=== PATIENT | male | born 1945 | race Caucasian/White ===

== ENCOUNTER → 2016-12-21 | Outpatient (REF) | payer MEDICARE, OTHER ==
[2016-12-21 12:29] LABS: ALBUMIN 4.1 GM/DL (3.2-5.2); ALBUMIN/GLOBULIN RATIO 1.32 (1.00-1.93); ALKALINE PHOSPHATASE 68 U/L (45-117); ALT/SGPT 36 U/L (12-78); ANION GAP 6 MEQ/L (8-16); AST/SGOT 20 U/L (15-37); BILIRUBIN,TOTAL 0.5 MG/DL (0.2-1.0); BLOOD UREA NITROGEN 15 MG/DL (7-18); CALCIUM LEVEL 8.9 MG/DL (8.8-10.2); CARBON DIOXIDE LEVEL 28 MEQ/L (21-32); CHLORIDE LEVEL 105 MEQ/L (98-107); CHOLESTEROL LEVEL 220 MG/DL (<200); GLOMERULAR FILTRATION RATE > 60.0 (>49); GLUCOSE, FASTING 98 MG/DL (80-110); POTASSIUM SERUM 4.8 MEQ/L (3.5-5.1); SODIUM LEVEL 139 MEQ/L (136-145); TOTAL PROTEIN 7.2 GM/DL (6.4-8.2); TRIGLYCERIDES LEVEL 161 MG/DL (<150)
== END ==
LOC: M SFHCPLAZ 09:13
PROVIDERS: ATTEND Physician Assistant
DX: E78.4 Other hyperlipidemia (principal)

== ENCOUNTER → 2016-12-28 | Outpatient (REF) | payer MEDICARE, OTHER ==
[2016-12-31 00:08] LABS: BABESIOSIS LEVEL IGG <1:10 (Neg:<1:10); BABESIOSIS LEVEL IGM <1:10 (Neg:<1:10); Lyme Disease IgG Ab 18 kDa Ban Present (.); Lyme Disease IgG Ab 23 kDa Ban Absent (.); Lyme Disease IgG Ab 28 kDa Ban Absent (.); Lyme Disease IgG Ab 30 kDa Ban Present (.); Lyme Disease IgG Ab 39 kDa Ban Present (.); Lyme Disease IgG Ab 41 kDa Ban Absent (.); Lyme Disease IgG Ab 45 kDa Ban Present (.); Lyme Disease IgG Ab 58 kDa Ban Absent (.); Lyme Disease IgG Ab 66 kDa Ban Present (.); Lyme Disease IgG Ab 93 kDa Ban Absent (.); Lyme Disease IgG West Blot Int Positive (.); Lyme Disease IgG/IgM Antibodie 1.22 ISR (0.00-0.90); Lyme Disease IgM Ab 23 kDa Ban Absent (.); Lyme Disease IgM Ab 39 kDa Ban Absent (.); Lyme Disease IgM Ab 41 kDa Ban Absent (.); Lyme Disease IgM Ab Quantitati <0.80 index (0.00-0.79); Lyme Disease IgM West Blot Int Negative (.)
== END ==
LOC: M SFHCPLAZ 08:54
PROVIDERS: ATTEND Physician Assistant
DX: A69.20 Lyme disease, unspecified (principal)
CPT/HCPCS: 85652; 86140; 86609; 86617; G0463

== ENCOUNTER → 2017-01-01 | Outpatient (REF) | payer MEDICARE, OTHER | LOC: M SFHCPLAZ 10:05 | PROVIDERS: ATTEND Physician Assistant | DX: A69.20 Lyme disease, unspecified (principal) ==

== ENCOUNTER 2017-04-13 12:13 | Outpatient (CLI) | payer MEDICARE, BC, OTHER ==
[~2017-04-13] VITALS: Ht 182.9 cm; Wt 120.2 kg
[~2017-04-13 12:13] MED LIST: ATOR1TAB21 PO; LISI40TAB PO
[2017-04-13] MEDS ORDERED: NS 1,000 ML IV ONE (12:30)
[2017-04-13] MEDS ORDERED: PROPOFOL 200 MG/20 ML VIAL As Ordered ONE ×2 (14:15→14:23)
--- NOTE | 2017-04-13 14:39 | ROOR ---
Patient Name: Aquilino Bess Procedure Date: 04/13/2017 2:05 PM Date of : 1945 Age: 71 Room: [facility] Gender: Male Note Status: Finalized Procedure: Total Colonoscopy to Cecum + Cold Snare Polypectomy Indications: Screening for colorectal malignant neoplasm Providers: Walt Parker MD Referring MD: KETURAH Harrington Requesting Provider: Medicines: Monitored Anesthesia Care Complications: No immediate complications. Procedure: Pre-Anesthesia Assessment: - The heart rate, respiratory rate, oxygen saturations, blood pressure, adequacy of pulmonary ventilation, and response to care were monitored throughout the procedure. The Colonoscope was introduced through the anus and advanced to the cecum, identified by appendiceal orifice and ileocecal valve. The colonoscopy was performed without difficulty. The patient tolerated the procedure well. The quality of the bowel preparation was excellent. Findings: The perianal and digital rectal examinations were normal. Non-bleeding internal hemorrhoids were found during retroflexion. The hemorrhoids were small and Grade I (internal hemorrhoids that do not prolapse). Multiple small and large-mouthed diverticula were found in the recto-sigmoid colon, sigmoid colon and descending colon. A small polyp was found in the ileocecal valve. The polyp was sessile. The polyp was removed with a cold snare. Resection and retrieval were complete. The exam was otherwise without abnormality on direct and retroflexion views. Impression: - Non-bleeding internal hemorrhoids. - Diverticulosis in the recto-sigmoid colon, in the sigmoid colon and in the descending colon. - One small polyp at the ileocecal valve, removed with a cold snare. Resected and retrieved. - The examination was otherwise normal on direct and retroflexion views. - The exam was otherwise normal to the cecum. Recommendation: - Patient has a contact number available for emergencies. The signs and symptoms of potential delayed complications were discussed with the patient. Return to normal activities tomorrow. Written discharge instructions were provided to the patient. - High fiber diet. - Discharge patient to home. - Continue present medications. - Await pathology results. - Telephone GI clinic for pathology results in 1 week. - Repeat colonoscopy in 5 years for surveillance based on pathology results. - Return to referring physician. - The findings and recommendations were discussed with the patient's family. Walt Parker MD Walt Parker MD 04/13/2017 2:39:27 PM This report has been signed electronically. Number of Addenda: 0 Note Initiated On: 04/13/2017 2:05 PM Estimated Blood Loss: Estimated blood loss: none.
[2017-04-13 15:04] VITALS: BP 152/80
== END 2017-04-13 15:15 | disposition home or self-care (01) ==
LOC: M OPP 12:13
PROVIDERS: ATTEND Internal Medicine Gastroenterology
DX: Z12.11 Encounter for screening for malignant neoplasm of colon (principal); D12.0 Benign neoplasm of cecum; K64.0 First degree hemorrhoids; K57.30 Diverticulosis of large intestine without perforation or abscess without bleeding; I10 Essential (primary) hypertension; E78.5 Hyperlipidemia, unspecified; Z86.19 Personal history of other infectious and parasitic diseases; G47.8 Other sleep disorders; G47.30 Sleep apnea, unspecified; R06.83 Snoring; Z88.0 Allergy status to penicillin; Z79.899 Other long term (current) drug therapy

== ENCOUNTER → 2017-12-10 | Outpatient (REF) | payer MEDICARE, OTHER ==
[2017-12-10 12:22] LABS: ALBUMIN 4.4 GM/DL (3.2-5.2); ALBUMIN/GLOBULIN RATIO 1.42 (1.00-1.93); ALKALINE PHOSPHATASE 83 U/L (45-117); ALT/SGPT 32 U/L (12-78); ANION GAP 7 MEQ/L (8-16); AST/SGOT 23 U/L (7-37); BILIRUBIN,TOTAL 0.5 MG/DL (0.2-1.0); BLOOD UREA NITROGEN 12 MG/DL (7-18); CARBON DIOXIDE LEVEL 28 MEQ/L (21-32); CHLORIDE LEVEL 106 MEQ/L (98-107); CREATININE FOR GFR 0.97 MG/DL (0.70-1.30); GLOMERULAR FILTRATION RATE > 60.0 (>42); GLUCOSE, FASTING 104 MG/DL (70-100); POTASSIUM SERUM 4.8 MEQ/L (3.5-5.1); SODIUM LEVEL 141 MEQ/L (136-145); TOTAL PROTEIN 7.5 GM/DL (6.4-8.2)
== END ==
LOC: M SFHCPLAZ 07:35
DX: I10 Essential (primary) hypertension (principal)
CPT/HCPCS: 80053

== ENCOUNTER → 2018-11-10 | Outpatient (CLI) | payer MEDICARE, BC, OTHER ==
[~2018-11-10] MED LIST changes: +LISI40TA PO; -LISI40TAB PO
[2018-11-10 09:18] LABS: BASO % 0.6 % (0.0-1.0); EOS # 0.1 10^3/uL (0.0-0.50); EOS % 2.8 % (0.0-3.0); HEMATOCRIT 44.9 % (42.0-52.0); HEMOGLOBIN 15.5 g/dl (13.5-17.5); LYMPH # 1.4 10^3/uL (1.5-4.5); LYMPH % 28.6 % (24.0-44.0); MEAN CORPUSCULAR HEMOGLOBIN 31.6 pg (27.0-33.0); MEAN CORPUSCULAR HGB CONC 34.5 g/dl (32.0-36.5); MEAN CORPUSCULAR VOLUME 91.4 fl (80.0-96.0); MONO # 0.6 10^3/uL (0.0-0.8); MONO % 11.6 % (0.0-5.0); NEUTROPHILS # 2.8 10^3/uL (1.8-7.7); NEUTROPHILS % 55.8 % (36.0-66.0); PLATELET COUNT, AUTOMATED 271 10^3/uL (150-450); RED BLOOD COUNT 4.91 10^6/uL (4.30-6.10)
[2018-11-10 09:48] LABS: ALBUMIN 4.5 GM/DL (3.2-5.2); ALT/SGPT 35 U/L (12-78); BILIRUBIN,TOTAL 0.6 MG/DL (0.2-1.0); BLOOD UREA NITROGEN 15 MG/DL (7-18); C REACTIVE PROTEIN QUANTITATIV 0.31 MG/DL (0.00-0.30); CALCIUM LEVEL 9.1 MG/DL (8.8-10.2); CARBON DIOXIDE LEVEL 27 MEQ/L (21-32); CHLORIDE LEVEL 102 MEQ/L (98-107); CHOLESTEROL LEVEL 291 MG/DL (<200); CHOLESTEROL RISK RATIO 5.017 (<5); CREATININE FOR GFR 1.03 MG/DL (0.70-1.30); FERRITIN 246 NG/ML (26-388); FREE T3 3.4 PG/ML (2.2-4.0); FREE T4 1.24 NG/DL (0.76-1.46); GLOMERULAR FILTRATION RATE > 60.0 (>42); GLUCOSE, FASTING 94 MG/DL (70-100); HDL CHOLESTEROL 58 MG/DL (>40); LDL CHOLESTEROL 195 MG/DL (<100); NON-HDL-C 233 MG/DL; POTASSIUM SERUM 4.3 MEQ/L (3.5-5.1); PROSTATIC SPECIFIC AG MONITOR 0.49 NG/ML (< 4.00); SODIUM LEVEL 136 MEQ/L (136-145); TOTAL PROTEIN 7.9 GM/DL (6.4-8.2); TRIGLYCERIDES LEVEL 190 MG/DL (<150)
[2018-11-10 09:55] LABS: ERYTHROCYTE SEDIMENTATION RATE 6 mm/hr (0-20)
[2018-11-10 09:58] LABS: HEMOGLOBIN A1c 5.6 %
[2018-11-10 11:51] LABS: CORTISOL AM 17.3 UG/DL (4.3-22.4); TOTAL 25(OH) VITAMIN D 46.8 NG/ML (30.0-100.0)
[2018-11-10 11:52] LABS: ESTRADIOL 32.2 PG/ML (<39.8); PROLACTIN 9.8 NG/ML (2.1-17.7); VITAMIN B12 LEVEL 396 PG/ML (247-911)
[2018-11-11 09:59] LABS: THYROID PEROXIDASE ANTIBODY < 28.0 U/ML (<60.0)
[2018-11-11 10:00] LABS: THYROGLOBULIN ANTIBODY < 15.0 U/ML (<60.0)
[2018-11-11 10:11] LABS: HEPATITIS B SURFACE ANTIGEN NEGATIVE (NEGATIVE)
[2018-11-11 10:37] LABS: HEPATITIS B CORE ANTIBODY IGM NEGATIVE (NEGATIVE)
[2018-11-11 10:38] LABS: HEPATITIS A ANTIBODY IGM NEGATIVE (NEGATIVE)
[2018-11-12 00:08] LABS: EBV AB TO NUCLEAR ANTIGEN <18.0 U/mL (0.0-17.9); EBV VIRAL CAPSID AG IgM <36.0 U/mL (0.0-35.9)
[2018-11-12 08:23] LABS: H PYLORI SERUM QUANT IgG ABY 6.57 (0.00-0.79); MYCOPLASMA PNEUMONIAE IgG 299 U/mL (0-99); MYCOPLASMA PNEUMONIAE IgM <770 U/mL (0-769); TISSUE TRANSGLUTAMINASE IgA <2 U/mL (0-3); ZINC PLASMA 88 ug/dL (56-134)
== END ==
LOC: M LAB 07:22
PROVIDERS: ATTEND Internal Medicine Gastroenterology
DX: R68.89 Other general symptoms and signs (principal); I10 Essential (primary) hypertension; E51.9 Thiamine deficiency, unspecified; E53.8 Deficiency of other specified B group vitamins; R79.89 Other specified abnormal findings of blood chemistry; E60 Dietary zinc deficiency; E11.9 Type 2 diabetes mellitus without complications; B96.81 Helicobacter pylori [H. pylori] as the cause of diseases classified elsewhere; Z11.59 Encounter for screening for other viral diseases; Z79.899 Other long term (current) drug therapy

== ENCOUNTER → 2019-01-12 | Outpatient (CLI) | payer MEDICARE, BC, OTHER ==
--- NOTE | 2019-01-12 10:51 | REP ---
SCREENING ABDOMINAL AORTA ULTRASOUND: The proximal aorta at the level of the diaphragm measures 2.3 cm in transverse by 2.5 cm in AP dimensions. The aorta measures 1.9 cm in transverse by 2.1 cm in AP dimensions at the level of the renal arteries. The mid abdominal aorta measures 2.2 cm in transverse by 2.4 cm in AP dimensions. The distal abdominal aorta measures 2.1 cm in transverse by 2.3 cm in AP dimensions. There is mild atherosclerotic plaque formation and ectasia in the mid aorta. IMPRESSION: Aorta ultrasound as described above. Electronically Signed by Guy Meyer MD 01/12/2019 11:10 A
== END ==
LOC: M RAD 08:32
PROVIDERS: ATTEND Family Medicine
DX: F17.211 Nicotine dependence, cigarettes, in remission (principal)

== ENCOUNTER → 2019-02-02 | Outpatient (CLI) | payer MEDICARE, BC, OTHER ==
[2019-02-02 08:18] LABS: BASO % 0.6 % (0.0-1.0); EOS # 0.2 10^3/uL (0.0-0.50); HEMATOCRIT 42.3 % (42.0-52.0); HEMOGLOBIN 14.3 g/dl (13.5-17.5); LYMPH # 1.5 10^3/uL (1.5-4.5); LYMPH % 29.5 % (24.0-44.0); MEAN CORPUSCULAR HEMOGLOBIN 31.4 pg (27.0-33.0); MEAN CORPUSCULAR HGB CONC 33.8 g/dl (32.0-36.5); MEAN CORPUSCULAR VOLUME 92.8 fl (80.0-96.0); MONO # 0.6 10^3/uL (0.0-0.8); MONO % 11.2 % (0.0-5.0); NEUTROPHILS # 2.7 10^3/uL (1.8-7.7); NEUTROPHILS % 54.3 % (36.0-66.0); PLATELET COUNT, AUTOMATED 269 10^3/uL (150-450); RED BLOOD COUNT 4.56 10^6/uL (4.30-6.10)
[2019-02-02 08:50] LABS: ALBUMIN 4.1 GM/DL (3.2-5.2); ALT/SGPT 25 U/L (12-78); BILIRUBIN,TOTAL 0.5 MG/DL (0.2-1.0); BLOOD UREA NITROGEN 16 MG/DL (7-18); CALCIUM LEVEL 9.1 MG/DL (8.8-10.2); CARBON DIOXIDE LEVEL 29 MEQ/L (21-32); CHLORIDE LEVEL 103 MEQ/L (98-107); CREATININE FOR GFR 1.11 MG/DL (0.70-1.30); GLOMERULAR FILTRATION RATE > 60.0 (>42); GLUCOSE, FASTING 95 MG/DL (70-100); POTASSIUM SERUM 4.6 MEQ/L (3.5-5.1); SODIUM LEVEL 137 MEQ/L (136-145); TOTAL PROTEIN 7.4 GM/DL (6.4-8.2)
== END ==
LOC: M LAB 07:24
PROVIDERS: ATTEND Internal Medicine Gastroenterology
DX: R68.89 Other general symptoms and signs (principal); I10 Essential (primary) hypertension

== ENCOUNTER → 2019-03-07 | Outpatient (CLI) | payer MEDICARE, BC, OTHER ==
[2019-03-07 11:35] LABS: BASO % 0.5 % (0.0-1.0); EOS # 0.1 10^3/uL (0.0-0.50); EOS % 1.3 % (0.0-3.0); HEMATOCRIT 41.7 % (42.0-52.0); HEMOGLOBIN 14.6 g/dl (13.5-17.5); LYMPH # 1.3 10^3/uL (1.5-4.5); LYMPH % 22.8 % (24.0-44.0); MEAN CORPUSCULAR HEMOGLOBIN 32.1 pg (27.0-33.0); MEAN CORPUSCULAR VOLUME 91.6 fl (80.0-96.0); MONO # 0.8 10^3/uL (0.0-0.8); MONO % 13.7 % (0.0-5.0); NEUTROPHILS # 3.4 10^3/uL (1.8-7.7); NEUTROPHILS % 61.5 % (36.0-66.0); PLATELET COUNT, AUTOMATED 260 10^3/uL (150-450); RED BLOOD COUNT 4.55 10^6/uL (4.30-6.10); WHITE BLOOD COUNT 5.5 10^3/uL (4.0-10.0)
[2019-03-07 12:21] LABS: ALBUMIN 4.5 GM/DL (3.2-5.2); ALT/SGPT 34 U/L (12-78); BILIRUBIN,TOTAL 0.6 MG/DL (0.2-1.0); BLOOD UREA NITROGEN 19 MG/DL (7-18); CALCIUM LEVEL 9.4 MG/DL (8.8-10.2); CARBON DIOXIDE LEVEL 28 MEQ/L (21-32); CHLORIDE LEVEL 103 MEQ/L (98-107); CREATININE FOR GFR 1.16 MG/DL (0.70-1.30); GLOMERULAR FILTRATION RATE > 60.0 (>42); GLUCOSE, FASTING 94 MG/DL (70-100); POTASSIUM SERUM 4.5 MEQ/L (3.5-5.1); SODIUM LEVEL 136 MEQ/L (136-145); TOTAL PROTEIN 7.7 GM/DL (6.4-8.2)
== END ==
LOC: M LAB 11:10
PROVIDERS: ATTEND Internal Medicine Gastroenterology
DX: I10 Essential (primary) hypertension (principal)

== ENCOUNTER → 2019-04-10 | Outpatient (CLI) | payer MEDICARE, BC, OTHER ==
[2019-04-10 11:13] LABS: BASO % 0.6 % (0.0-1.0); EOS # 0.1 10^3/uL (0.0-0.5); EOS % 2.8 % (0.0-3.0); HEMATOCRIT 40.8 % (42.0-52.0); HEMOGLOBIN 13.9 g/dl (13.5-17.5); LYMPH # 1.5 10^3/uL (1.5-5.0); LYMPH % 30.6 % (24.0-44.0); MEAN CORPUSCULAR HGB CONC 34.1 g/dl (32.0-36.5); MEAN CORPUSCULAR VOLUME 93.8 fl (80.0-96.0); MONO # 0.6 10^3/uL (0.0-0.8); NEUTROPHILS # 2.7 10^3/uL (1.5-8.5); NEUTROPHILS % 54.6 % (36.0-66.0); PLATELET COUNT, AUTOMATED 256 10^3/uL (150-450); RED BLOOD COUNT 4.35 10^6/uL (4.30-6.10)
[2019-04-10 11:34] LABS: ALBUMIN 3.9 GM/DL (3.2-5.2); ALT/SGPT 32 U/L (12-78); BILIRUBIN,TOTAL 0.5 MG/DL (0.2-1.0); BLOOD UREA NITROGEN 16 MG/DL (7-18); CALCIUM LEVEL 8.6 MG/DL (8.8-10.2); CARBON DIOXIDE LEVEL 30 MEQ/L (21-32); CHLORIDE LEVEL 105 MEQ/L (98-107); GLOMERULAR FILTRATION RATE > 60.0 (>42); GLUCOSE, FASTING 91 MG/DL (70-100); POTASSIUM SERUM 4.5 MEQ/L (3.5-5.1); SODIUM LEVEL 139 MEQ/L (136-145)
== END ==
LOC: M LAB 10:10
PROVIDERS: ATTEND Internal Medicine Gastroenterology
DX: Z79.899 Other long term (current) drug therapy (principal)

== ENCOUNTER → 2019-05-15 | Outpatient (CLI) | payer MEDICARE, BC, OTHER ==
[2019-05-15 09:34] LABS: BASO % 0.4 % (0.0-1.0); EOS # 0.1 10^3/uL (0.0-0.5); EOS % 2.7 % (0.0-3.0); HEMATOCRIT 40.9 % (42.0-52.0); HEMOGLOBIN 14.2 g/dl (13.5-17.5); LYMPH # 1.5 10^3/uL (1.5-5.0); LYMPH % 33.2 % (24.0-44.0); MEAN CORPUSCULAR HEMOGLOBIN 33.4 pg (27.0-33.0); MEAN CORPUSCULAR HGB CONC 34.7 g/dl (32.0-36.5); MEAN CORPUSCULAR VOLUME 96.2 fl (80.0-96.0); MONO # 0.5 10^3/uL (0.0-0.8); NEUTROPHILS # 2.3 10^3/uL (1.5-8.5); NEUTROPHILS % 51.3 % (36.0-66.0); PLATELET COUNT, AUTOMATED 214 10^3/uL (150-450); RED BLOOD COUNT 4.25 10^6/uL (4.30-6.10); WHITE BLOOD COUNT 4.5 10^3/uL (4.0-10.0)
[2019-05-15 10:12] LABS: ALBUMIN 3.9 GM/DL (3.2-5.2); ALT/SGPT 30 U/L (12-78); BILIRUBIN,TOTAL 0.5 MG/DL (0.2-1.0); BLOOD UREA NITROGEN 15 MG/DL (7-18); CARBON DIOXIDE LEVEL 29 MEQ/L (21-32); CHLORIDE LEVEL 104 MEQ/L (98-107); CREATININE FOR GFR 1.04 MG/DL (0.70-1.30); GLOMERULAR FILTRATION RATE > 60.0 (>42); GLUCOSE, FASTING 76 MG/DL (70-100); POTASSIUM SERUM 4.1 MEQ/L (3.5-5.1); SODIUM LEVEL 139 MEQ/L (136-145)
== END ==
LOC: M LAB 08:58
PROVIDERS: ATTEND Internal Medicine Gastroenterology
DX: I10 Essential (primary) hypertension (principal); R68.89 Other general symptoms and signs

== ENCOUNTER → 2019-06-10 | Outpatient (CLI) | payer MEDICARE, BC, OTHER ==
--- NOTE | 2019-06-12 09:23 | REP ---
MRI cervical spine: 06/10/2019. Indication: Cervical radiculopathy. Comparison: None. Technique: Multiplanar short and long TR sequences of the local spine were obtained without IV Gadolinium. Findings: Image quality is degraded by patient motion. Vertebral body alignment is within anatomical limits. Disc space narrowing and desiccation are present throughout. Endplate degenerative signal changes are noted most pronounced at C6/C7. No worrisome marrow signal is detected. There is no abnormal cord signal detected. C2/C3: There is no focal disc herniation or significant spinal canal / neural foraminal narrowing. C3/C4: Minimal disc bulge is present with bilateral facet arthropathy and no significant spinal canal or neural foraminal narrowing. C4/C5: There is an asymmetric disc osteophyte complex more apparent on the right with bilateral facet arthropathy. There is mild effacement of the ventral thecal sac. There is severe right and moderate left neural foraminal narrowing. C5/C6: Diffuse disc bulge and bilateral facet arthropathy are present with mild spinal canal and neural foraminal narrowing. C6/C7: Diffuse disc osteophyte complex is present more apparent on the left with mild spinal canal narrowing. There is moderate left neural foraminal narrowing. C7/C1: There is no focal disc herniation or significant spinal canal / neural foraminal narrowing. Impression: Multilevel degenerative sequelae as described without severe spinal canal narrowing/cord compression. Please correlate above with radicular level. Electronically Signed by Vu Reid DO 06/12/2019 09:15 A
== END ==
LOC: M RAD 09:58
PROVIDERS: ATTEND Family Medicine
DX: M50.30 Other cervical disc degeneration, unspecified cervical region (principal)

== ENCOUNTER → 2019-07-03 | Outpatient (CLI) | payer MEDICARE, BC, OTHER ==
[2019-07-03 08:51] LABS: BASO % 0.7 % (0.0-1.0); EOS # 0.2 10^3/uL (0.0-0.5); HEMOGLOBIN 14.7 g/dl (13.5-17.5); LYMPH # 1.3 10^3/uL (1.5-5.0); LYMPH % 30.2 % (24.0-44.0); MEAN CORPUSCULAR HEMOGLOBIN 31.9 pg (27.0-33.0); MEAN CORPUSCULAR HGB CONC 33.4 g/dl (32.0-36.5); MEAN CORPUSCULAR VOLUME 95.4 fl (80.0-96.0); MONO # 0.5 10^3/uL (0.0-0.8); MONO % 10.8 % (0.0-5.0); NEUTROPHILS # 2.3 10^3/uL (1.5-8.5); NEUTROPHILS % 53.8 % (36.0-66.0); PLATELET COUNT, AUTOMATED 246 10^3/uL (150-450); RED BLOOD COUNT 4.61 10^6/uL (4.30-6.10); WHITE BLOOD COUNT 4.3 10^3/uL (4.0-10.0)
[2019-07-03 09:07] LABS: ALBUMIN 3.9 GM/DL (3.2-5.2); ALT/SGPT 22 U/L (12-78); BILIRUBIN,TOTAL 0.5 MG/DL (0.2-1.0); BLOOD UREA NITROGEN 12 MG/DL (7-18); CALCIUM LEVEL 9.2 MG/DL (8.8-10.2); CARBON DIOXIDE LEVEL 29 MEQ/L (21-32); CHLORIDE LEVEL 106 MEQ/L (98-107); CHOLESTEROL LEVEL 255 MG/DL (<200); CHOLESTEROL RISK RATIO 4.322 (<5); CREATININE FOR GFR 0.97 MG/DL (0.70-1.30); FERRITIN 215 NG/ML (26-388); GLOMERULAR FILTRATION RATE > 60.0 (>42); GLUCOSE, FASTING 89 MG/DL (70-100); HDL CHOLESTEROL 59 MG/DL (>40); IRON (FE) 95 UG/DL (65-175); LDL CHOLESTEROL 170 MG/DL (<100); NON-HDL-C 196 MG/DL; PERCENT SATURATION 32.4 % (19.7-50.0); POTASSIUM SERUM 4.4 MEQ/L (3.5-5.1); SODIUM LEVEL 141 MEQ/L (136-145); TOTAL IRON BINDING CAPACITY 293 UG/DL (250-450); TOTAL PROTEIN 7.1 GM/DL (6.4-8.2); TRIGLYCERIDES LEVEL 129 MG/DL (<150)
[2019-07-03 11:26] LABS: ESTRADIOL 32.5 PG/ML (<39.8)
[2019-07-03 11:34] LABS: FOLATE 16.6 NG/ML (>5.4)
[2019-07-07 00:09] LABS: TESTOSTERONE DI-5-ALPHA LEVEL 36 ng/dL (.)
[2019-07-10 09:03] LABS: DEHYDROEPIANDROSTERONE SULFATE 89.5 ug/dL (30.9-295.6); HOMOCYST(E)INE SERUM 8.3 umol/L (0.0-15.0); Methylmalonic Acid 198 nmol/L (0-378); TESTOSTERONE FREE (DIRECT) 11.4 pg/mL (6.6-18.1)
== END ==
LOC: M LAB 07:59
PROVIDERS: ATTEND Internal Medicine Gastroenterology
DX: R68.89 Other general symptoms and signs (principal); I10 Essential (primary) hypertension; D50.8 Other iron deficiency anemias; Z13.0 Encounter for screening for diseases of the blood and blood-forming organs and certain disorders involving the immune mechanism; D63.0 Anemia in neoplastic disease; E29.1 Testicular hypofunction; Z13.220 Encounter for screening for lipoid disorders

== ENCOUNTER → 2020-10-24 | Outpatient (REF) | payer MEDICARE, OTHER ==
[~2020-10-24] MED LIST changes: -LISI40TA PO; +LISI40TA4 PO
[2020-10-24 12:46] LABS: HEMATOCRIT 45.5 % (42.0-52.0); HEMOGLOBIN 15.5 g/dl (13.5-17.5); MEAN CORPUSCULAR HEMOGLOBIN 30.6 pg (27.0-33.0); MEAN CORPUSCULAR HGB CONC 34.1 g/dl (32.0-36.5); MEAN CORPUSCULAR VOLUME 89.7 fl (80.0-96.0); PLATELET COUNT, AUTOMATED 263 10^3/uL (150-450); RED BLOOD COUNT 5.07 10^6/uL (4.30-6.10); WHITE BLOOD COUNT 6.4 10^3/uL (4.0-10.0)
[2020-10-24 13:27] LABS: ALBUMIN 4.4 GM/DL (3.2-5.2); ALT/SGPT 39 U/L (12-78); BILIRUBIN,TOTAL 0.4 MG/DL (0.2-1.0); BLOOD UREA NITROGEN 14 MG/DL (7-18); CALCIUM LEVEL 9.2 MG/DL (8.8-10.2); CARBON DIOXIDE LEVEL 29 MEQ/L (21-32); CHLORIDE LEVEL 106 MEQ/L (98-107); CHOLESTEROL LEVEL 253 MG/DL (<200); CREATININE FOR GFR 0.91 MG/DL (0.70-1.30); FREE T4 0.99 NG/DL (0.76-1.46); GLOMERULAR FILTRATION RATE > 60.0 (>42); GLUCOSE, FASTING 92 MG/DL (70-100); HDL CHOLESTEROL 50 MG/DL (>40); LDL CHOLESTEROL 159 MG/DL (<100); NON-HDL-C 203 MG/DL; POTASSIUM SERUM 4.4 MEQ/L (3.5-5.1); SODIUM LEVEL 140 MEQ/L (136-145); TOTAL PROTEIN 7.6 GM/DL (6.4-8.2); TRIGLYCERIDES LEVEL 218 MG/DL (<150)
== END ==
LOC: M SFHCADAM 09:22
PROVIDERS: ATTEND Family Medicine
DX: G47.33 Obstructive sleep apnea (adult) (pediatric) (principal); E78.5 Hyperlipidemia, unspecified; Z12.5 Encounter for screening for malignant neoplasm of prostate
CPT/HCPCS: 80053; 80061; 84439; 84443; 85027; G0103; G0463

== ENCOUNTER → 2021-02-03 | Outpatient (REF) | payer MEDICARE, OTHER ==
[2021-02-03 13:29] LABS: BASO % 0.5 % (0.0-1.0); EOS # 0.1 10^3/uL (0.0-0.5); EOS % 1.7 % (0.0-3.0); HEMATOCRIT 48.3 % (42.0-52.0); HEMOGLOBIN 15.9 g/dl (13.5-17.5); LYMPH # 1.8 10^3/uL (1.5-5.0); LYMPH % 29.1 % (24.0-44.0); MEAN CORPUSCULAR HEMOGLOBIN 30.8 pg (27.0-33.0); MEAN CORPUSCULAR HGB CONC 32.9 g/dl (32.0-36.5); MEAN CORPUSCULAR VOLUME 93.4 fl (80.0-96.0); MONO # 0.6 10^3/uL (0.0-0.8); MONO % 10.1 % (2.0-8.0); NEUTROPHILS # 3.7 10^3/uL (1.5-8.5); NEUTROPHILS % 58.1 % (36.0-66.0); PLATELET COUNT, AUTOMATED 285 10^3/uL (150-450); RED BLOOD COUNT 5.17 10^6/uL (4.30-6.10); WHITE BLOOD COUNT 6.3 10^3/uL (4.0-10.0)
[2021-02-03 15:26] LABS: CHOLESTEROL RISK RATIO 3.345 (<5)
[2021-02-04 19:07] LABS: TESTOSTERONE FREE (DIRECT) 9.7 pg/mL (6.6-18.1)
== END ==
LOC: M SFHCADAM 08:48
PROVIDERS: ATTEND Physician Assistant
DX: E78.5 Hyperlipidemia, unspecified (principal); Z86.19 Personal history of other infectious and parasitic diseases; E29.1 Testicular hypofunction

== ENCOUNTER → 2021-06-27 | Outpatient (CLI) | payer MEDICARE, BC, OTHER ==
[2021-06-27 10:55] LABS: BASO % 0.4 % (0.0-1.0); EOS # 0.2 10^3/uL (0.0-0.5); EOS % 2.4 % (0.0-3.0); HEMATOCRIT 46.7 % (42.0-52.0); HEMOGLOBIN 15.8 g/dl (13.5-17.5); LYMPH # 1.6 10^3/uL (1.5-5.0); LYMPH % 19.2 % (24.0-44.0); MEAN CORPUSCULAR HEMOGLOBIN 30.5 pg (27.0-33.0); MEAN CORPUSCULAR HGB CONC 33.8 g/dl (32.0-36.5); MEAN CORPUSCULAR VOLUME 90.2 fl (80.0-96.0); MONO # 0.8 10^3/uL (0.0-0.8); MONO % 9.5 % (2.0-8.0); NEUTROPHILS # 5.6 10^3/uL (1.5-8.5); PLATELET COUNT, AUTOMATED 292 10^3/uL (150-450); RED BLOOD COUNT 5.18 10^6/uL (4.30-6.10); WHITE BLOOD COUNT 8.2 10^3/uL (4.0-10.0)
[2021-06-27 11:15] LABS: ERYTHROCYTE SEDIMENTATION RATE 9 mm/hr (0-20)
[2021-06-27 11:30] LABS: ALBUMIN 4.2 GM/DL (3.2-5.2); ALT/SGPT 30 U/L (12-78); BILIRUBIN,TOTAL 0.6 MG/DL (0.2-1.0); BLOOD UREA NITROGEN 11 MG/DL (7-18); C REACTIVE PROTEIN QUANTITATIV 0.93 MG/DL (0.00-0.30); CALCIUM LEVEL 9.1 MG/DL (8.8-10.2); CARBON DIOXIDE LEVEL 26 MEQ/L (21-32); CHLORIDE LEVEL 104 MEQ/L (98-107); CORTISOL AM 21.3 UG/DL (4.3-22.4); FERRITIN 214 NG/ML (26-388); FREE T4 1.07 NG/DL (0.76-1.46); GLOMERULAR FILTRATION RATE > 60.0 (>42); GLUCOSE, FASTING 93 MG/DL (70-100); IRON (FE) 89 UG/DL (65-175); MAGNESIUM LEVEL 2.1 MG/DL (1.8-2.4); PERCENT SATURATION 26.5 % (19.7-50.0); PHOSPHORUS LEVEL 3.4 MG/DL (2.5-4.9); POTASSIUM SERUM 4.6 MEQ/L (3.5-5.1); RHEUMATOID FACTOR QUANT < 10.0 IU/ML (<15.0); SODIUM LEVEL 137 MEQ/L (136-145); THYROID PEROXIDASE ANTIBODY < 28.0 U/ML (<60.0); TOTAL 25(OH) VITAMIN D 58.2 NG/ML (30.0-100.0); TOTAL IRON BINDING CAPACITY 336 UG/DL (250-450); TOTAL PROTEIN 7.9 GM/DL (6.4-8.2)
[2021-06-27 11:31] LABS: VITAMIN B12 LEVEL 279 PG/ML (247-911)
[2021-06-27 16:01] LABS: HEMOGLOBIN A1c 5.5 %
[2021-06-28 17:11] LABS: MYCOPLASMA PNEUMONIAE IgG 321 U/mL (0-99); MYCOPLASMA PNEUMONIAE IgM <770 U/mL (0-769)
[2021-07-21 14:31] LABS: BARTONELLA DNA PCR SEE SEPARATE REPORT; COMPLEMENT C4A (FUTHAN) SEE SEPARATE REPORT
[2021-07-21 14:32] LABS: COX BURN IgG AB 1 See Separate Report TITER (<1:16); COX BURN IgG AB 2 See Separate Report TITER (<1:16); COX BURN IgM AB 2 See Separate Report TITER (<1:16); COX BURN IgM ABY 1 See Separate Report TITER (<1:16); EBV VIRAL CAPSID AG IgM SEE SEPARATE REPORT
[2021-07-21 14:33] LABS: ANTI DOUBLE STRAND-DNA AB See Separate Report; ANTI DS-DNA AB SEE SEPARATE REPORT; ANTINUCLEAR ANTIBODIES DIRECT See Separate Report; RNP ANTIBODIES See Separate Report; SJOGREN'S ANTI SS-A See Separate Report; SJOGREN'S ANTI SS-B See Separate Report; SMITH ANTIBODIES See Separate Report; VITAMIN B1 LEVEL WHOLE BLOOD See Separate Report
[2021-07-21 14:34] LABS: CHLAMYDIA PNEUMONIAE IgG SEE SEPARATE REPORT; CHLAMYDIA PNEUMONIAE IgM SEE SEPARATE REPORT; COPPER PLASMA SEE SEPARATE REPORT; E CHAFFEENSIS IgM TITER SEE SEPARATE REPORT; HUMAN GRANULCYTIC EHRLIC IgG SEE SEPARATE REPORT; HUMAN GRANULCYTIC EHRLIC IgM SEE SEPARATE REPORT; RMSFIGG1 SEE SEPARATE REPORT; ROCKY MTN SPOTTED FEVER IgM SEE SEPARATE REPORT; ZINC PLASMA See Separate Report
[2021-07-21 14:39] LABS: BABESIA MICROTI PCR SEE SEPARATE REPORT; DEHYDROEPIANDROSTERONE UNCONJ 150; E CHAFFEENSIS IgG TITER SEE SEPARATE REPORT
[2021-07-21 14:40] LABS: EBV AB TO NUCLEAR ANTIGEN SEE SEPARATE REPORT; EBV VIRAL CAPSID AG IgG SEE SEPARATE REPORT; SELENIUM LEVEL BLOOD SEE SEPARATE REPORT
[2021-07-21 14:43] LABS: ADRENOCORTICOTROPHIC HORMONE 20.1 pg/ml; VITAMIN B2 (RIBOFLAVIN) SEE SEPARATE REPORT
== END ==
LOC: M LAB 08:07
PROVIDERS: ATTEND General Practice
DX: E03.9 Hypothyroidism, unspecified (principal); E61.3 Manganese deficiency; E11.9 Type 2 diabetes mellitus without complications; R53.83 Other fatigue; I10 Essential (primary) hypertension; Z79.899 Other long term (current) drug therapy

== ENCOUNTER → 2021-11-19 | Outpatient (CLI) | payer MEDICARE, BC, OTHER ==
[2021-11-19 10:19] LABS: BASO % 0.5 % (0.0-1.0); EOS # 0.1 10^3/uL (0.0-0.5); EOS % 2.4 % (0.0-3.0); HEMOGLOBIN 13.9 g/dl (13.5-17.5); LYMPH # 0.8 10^3/uL (1.5-5.0); LYMPH % 19.4 % (24.0-44.0); MEAN CORPUSCULAR HEMOGLOBIN 31.3 pg (27.0-33.0); MEAN CORPUSCULAR HGB CONC 33.9 g/dl (32.0-36.5); MEAN CORPUSCULAR VOLUME 92.3 fl (80.0-96.0); MONO # 0.6 10^3/uL (0.0-0.8); NEUTROPHILS # 2.6 10^3/uL (1.5-8.5); PLATELET COUNT, AUTOMATED 238 10^3/uL (150-450); RED BLOOD COUNT 4.44 10^6/uL (4.30-6.10); WHITE BLOOD COUNT 4.1 10^3/uL (4.0-10.0)
[2021-11-19 11:03] LABS: HEMOGLOBIN A1c 5.4 %
[2021-11-19 11:16] LABS: ALT/SGPT 28 U/L (12-78); BILIRUBIN,TOTAL 0.7 MG/DL (0.2-1.0); BLOOD UREA NITROGEN 14 MG/DL (7-18); CALCIUM LEVEL 9.1 MG/DL (8.8-10.2); CARBON DIOXIDE LEVEL 31 MEQ/L (21-32); CHLORIDE LEVEL 106 MEQ/L (98-107); CHOLESTEROL LEVEL 147 MG/DL (<200); CREATININE FOR GFR 0.97 MG/DL (0.70-1.30); GLOMERULAR FILTRATION RATE > 60.0 (>42); GLUCOSE, FASTING 91 MG/DL (70-100); HDL CHOLESTEROL 49 MG/DL (>40); LDL CHOLESTEROL 75 MG/DL (<100); NON-HDL-C 98 MG/DL; POTASSIUM SERUM 4.5 MEQ/L (3.5-5.1); SODIUM LEVEL 140 MEQ/L (136-145); TOTAL 25(OH) VITAMIN D 36.2 NG/ML (30.0-100.0); TOTAL PROTEIN 6.8 GM/DL (6.4-8.2); TRIGLYCERIDES LEVEL 116 MG/DL (<150); VITAMIN B12 LEVEL 1301 PG/ML (247-911)
== END ==
LOC: M LAB 09:33
PROVIDERS: ATTEND General Practice
DX: I10 Essential (primary) hypertension (principal)

== ENCOUNTER → 2021-11-19 | Outpatient (CLI) | payer MEDICARE, BC, OTHER | LOC: CANPRECLI → M ADAMS 08:35 | PROVIDERS: ATTEND General Practice | DX: R53.83 Other fatigue (principal); E55.9 Vitamin D deficiency, unspecified; E53.8 Deficiency of other specified B group vitamins; E29.1 Testicular hypofunction; R68.89 Other general symptoms and signs; E11.9 Type 2 diabetes mellitus without complications; C80.1 Malignant (primary) neoplasm, unspecified; A78 Q fever; R79.82 Elevated C-reactive protein (CRP); Z13.220 Encounter for screening for lipoid disorders; E72.11 Homocystinuria ==

== ENCOUNTER → 2021-11-25 | Outpatient (CLI) | payer MEDICARE, BC, OTHER ==
[2021-11-25 08:56] LABS: BASO % 0.6 % (0.0-1.0); EOS # 0.2 10^3/uL (0.0-0.5); EOS % 3.1 % (0.0-3.0); HEMATOCRIT 41.2 % (42.0-52.0); LYMPH % 18.9 % (24.0-44.0); MEAN CORPUSCULAR HEMOGLOBIN 31.8 pg (27.0-33.0); MEAN CORPUSCULAR VOLUME 93.6 fl (80.0-96.0); MONO # 0.6 10^3/uL (0.0-0.8); MONO % 11.9 % (2.0-8.0); NEUTROPHILS # 3.3 10^3/uL (1.5-8.5); NEUTROPHILS % 64.9 % (36.0-66.0); PLATELET COUNT, AUTOMATED 248 10^3/uL (150-450); WHITE BLOOD COUNT 5.1 10^3/uL (4.0-10.0)
[2021-11-25 09:30] LABS: ALBUMIN 4.1 GM/DL (3.2-5.2); ALT/SGPT 31 U/L (12-78); BILIRUBIN,TOTAL 0.5 MG/DL (0.2-1.0); BLOOD UREA NITROGEN 10 MG/DL (7-18); CALCIUM LEVEL 8.9 MG/DL (8.8-10.2); CARBON DIOXIDE LEVEL 28 MEQ/L (21-32); CHLORIDE LEVEL 108 MEQ/L (98-107); CHOLESTEROL LEVEL 169 MG/DL (<200); CREATININE FOR GFR 0.91 MG/DL (0.70-1.30); GLOMERULAR FILTRATION RATE > 60.0 (>42); GLUCOSE, FASTING 91 MG/DL (70-100); HDL CHOLESTEROL 50 MG/DL (>40); LDL CHOLESTEROL 91 MG/DL (<100); NON-HDL-C 119 MG/DL; POTASSIUM SERUM 4.6 MEQ/L (3.5-5.1); SODIUM LEVEL 141 MEQ/L (136-145); TOTAL PROTEIN 7.2 GM/DL (6.4-8.2); TRIGLYCERIDES LEVEL 141 MG/DL (<150)
[2021-11-25 10:02] LABS: HEMOGLOBIN A1c 5.3 %
[2021-11-25 10:17] LABS: TOTAL 25(OH) VITAMIN D 38.3 NG/ML (30.0-100.0)
== END ==
LOC: M LAB 08:18
PROVIDERS: ATTEND General Practice
DX: R53.83 Other fatigue (principal); E55.9 Vitamin D deficiency, unspecified; E53.8 Deficiency of other specified B group vitamins; E11.9 Type 2 diabetes mellitus without complications; E29.1 Testicular hypofunction; R68.89 Other general symptoms and signs

== ENCOUNTER → 2021-12-08 | Outpatient (CLI) | payer MEDICARE, BC, OTHER ==
[2021-12-08 11:59] LABS: BASO % 0.7 % (0.0-1.0); EOS # 0.2 10^3/uL (0.0-0.5); EOS % 3.8 % (0.0-3.0); HEMATOCRIT 41.2 % (42.0-52.0); HEMOGLOBIN 13.8 g/dl (13.5-17.5); LYMPH # 1.3 10^3/uL (1.5-5.0); LYMPH % 24.2 % (24.0-44.0); MEAN CORPUSCULAR HEMOGLOBIN 30.8 pg (27.0-33.0); MEAN CORPUSCULAR HGB CONC 33.5 g/dl (32.0-36.5); MONO # 0.7 10^3/uL (0.0-0.8); MONO % 12.5 % (2.0-8.0); NEUTROPHILS # 3.2 10^3/uL (1.5-8.5); NEUTROPHILS % 58.3 % (36.0-66.0); PLATELET COUNT, AUTOMATED 285 10^3/uL (150-450); RED BLOOD COUNT 4.48 10^6/uL (4.30-6.10); WHITE BLOOD COUNT 5.5 10^3/uL (4.0-10.0)
[2021-12-08 12:07] LABS: ALBUMIN 4.2 GM/DL (3.2-5.2); ALT/SGPT 27 U/L (12-78); BILIRUBIN,TOTAL 0.5 MG/DL (0.2-1.0); BLOOD UREA NITROGEN 17 MG/DL (7-18); CALCIUM LEVEL 9.2 MG/DL (8.8-10.2); CARBON DIOXIDE LEVEL 31 MEQ/L (21-32); CHLORIDE LEVEL 106 MEQ/L (98-107); CREATININE FOR GFR 1.01 MG/DL (0.70-1.30); GLOMERULAR FILTRATION RATE > 60.0 (>42); GLUCOSE, FASTING 96 MG/DL (70-100); POTASSIUM SERUM 4.9 MEQ/L (3.5-5.1); SODIUM LEVEL 139 MEQ/L (136-145)
== END ==
LOC: M LAB 08:05
PROVIDERS: ATTEND General Practice
DX: E55.9 Vitamin D deficiency, unspecified (principal); R53.83 Other fatigue; E53.8 Deficiency of other specified B group vitamins; E29.1 Testicular hypofunction; R68.89 Other general symptoms and signs; E11.9 Type 2 diabetes mellitus without complications

== ENCOUNTER → 2021-12-12 | Outpatient (REF) | payer MEDICARE, BC, OTHER | LOC: M LAB REF 08:53 | PROVIDERS: ATTEND General Practice | DX: C80.1 Malignant (primary) neoplasm, unspecified (principal) ==

== ENCOUNTER → 2022-01-08 | Outpatient (CLI) | payer MEDICARE, BC, OTHER ==
[2022-01-08 08:00] LABS: BASO % 0.4 % (0.0-1.0); EOS # 0.3 10^3/uL (0.0-0.5); EOS % 5.3 % (0.0-3.0); HEMATOCRIT 43.9 % (42.0-52.0); HEMOGLOBIN 14.6 g/dl (13.5-17.5); LYMPH # 1.2 10^3/uL (1.5-5.0); LYMPH % 23.5 % (24.0-44.0); MEAN CORPUSCULAR HEMOGLOBIN 30.7 pg (27.0-33.0); MEAN CORPUSCULAR HGB CONC 33.3 g/dl (32.0-36.5); MEAN CORPUSCULAR VOLUME 92.4 fl (80.0-96.0); MONO # 0.7 10^3/uL (0.0-0.8); MONO % 12.3 % (2.0-8.0); NEUTROPHILS # 3.1 10^3/uL (1.5-8.5); NEUTROPHILS % 57.9 % (36.0-66.0); PLATELET COUNT, AUTOMATED 247 10^3/uL (150-450); RED BLOOD COUNT 4.75 10^6/uL (4.30-6.10); WHITE BLOOD COUNT 5.3 10^3/uL (4.0-10.0)
[2022-01-08 08:31] LABS: ALBUMIN 4.1 GM/DL (3.2-5.2); ALT/SGPT 24 U/L (12-78); BILIRUBIN,TOTAL 0.6 MG/DL (0.2-1.0); BLOOD UREA NITROGEN 14 MG/DL (7-18); CALCIUM LEVEL 9.5 MG/DL (8.8-10.2); CARBON DIOXIDE LEVEL 29 MEQ/L (21-32); CHLORIDE LEVEL 107 MEQ/L (98-107); CREATININE FOR GFR 0.96 MG/DL (0.70-1.30); GLOMERULAR FILTRATION RATE > 60.0 (>42); GLUCOSE, FASTING 96 MG/DL (70-100); POTASSIUM SERUM 4.4 MEQ/L (3.5-5.1); SODIUM LEVEL 142 MEQ/L (136-145); TOTAL PROTEIN 7.2 GM/DL (6.4-8.2)
== END ==
LOC: M LAB 06:55
PROVIDERS: ATTEND General Practice
DX: R53.83 Other fatigue (principal)

== ENCOUNTER → 2022-04-08 | Outpatient (CLI) | payer MEDICARE, BC, OTHER ==
[2022-04-08 08:35] LABS: BASO % 0.6 % (0.0-1.0); EOS # 0.2 10^3/uL (0.0-0.5); EOS % 4.1 % (0.0-3.0); LYMPH # 1.3 10^3/uL (1.5-5.0); LYMPH % 23.3 % (24.0-44.0); MEAN CORPUSCULAR HEMOGLOBIN 30.4 pg (27.0-33.0); MEAN CORPUSCULAR HGB CONC 33.3 g/dl (32.0-36.5); MEAN CORPUSCULAR VOLUME 91.3 fl (80.0-96.0); MONO # 0.6 10^3/uL (0.0-0.8); MONO % 11.8 % (2.0-8.0); NEUTROPHILS # 3.2 10^3/uL (1.5-8.5); NEUTROPHILS % 59.6 % (36.0-66.0); PLATELET COUNT, AUTOMATED 263 10^3/uL (150-450); RED BLOOD COUNT 4.93 10^6/uL (4.30-6.10); WHITE BLOOD COUNT 5.4 10^3/uL (4.0-10.0)
[2022-04-08 09:09] LABS: ALT/SGPT 24 U/L (12-78); BILIRUBIN,TOTAL 0.8 MG/DL (0.2-1.0); BLOOD UREA NITROGEN 15 MG/DL (7-18); CALCIUM LEVEL 9.1 MG/DL (8.8-10.2); CARBON DIOXIDE LEVEL 28 MEQ/L (21-32); CHLORIDE LEVEL 107 MEQ/L (98-107); GLOMERULAR FILTRATION RATE > 60.0 (>42); GLUCOSE, FASTING 96 MG/DL (70-100); POTASSIUM SERUM 4.6 MEQ/L (3.5-5.1); SODIUM LEVEL 139 MEQ/L (136-145); TOTAL PROTEIN 7.4 GM/DL (6.4-8.2)
[2022-04-08 09:40] LABS: VITAMIN B12 LEVEL > 2000 PG/ML (247-911)
[2022-04-08 10:40] LABS: ERYTHROCYTE SEDIMENTATION RATE 6 mm/hr (0-20)
== END ==
LOC: M LAB 07:13
PROVIDERS: ATTEND General Practice
DX: R53.83 Other fatigue (principal); E55.9 Vitamin D deficiency, unspecified; E53.8 Deficiency of other specified B group vitamins

== ENCOUNTER → 2022-05-04 | Outpatient (CLI) | payer MEDICARE, BC, OTHER | LOC: M LAB 07:54 | PROVIDERS: ATTEND General Practice | DX: E55.9 Vitamin D deficiency, unspecified (principal) ==

== ENCOUNTER → 2022-08-06 | Outpatient (CLI) | payer MEDICARE, BC, OTHER ==
[2022-08-06 09:22] LABS: BASO % 0.6 % (0.0-1.0); EOS # 0.2 10^3/uL (0.0-0.5); HEMATOCRIT 42.1 % (42.0-52.0); HEMOGLOBIN 14.2 g/dl (13.5-17.5); LYMPH # 1.2 10^3/uL (1.5-5.0); LYMPH % 24.7 % (24.0-44.0); MEAN CORPUSCULAR HEMOGLOBIN 30.6 pg (27.0-33.0); MEAN CORPUSCULAR HGB CONC 33.7 g/dl (32.0-36.5); MEAN CORPUSCULAR VOLUME 90.7 fl (80.0-96.0); MONO # 0.5 10^3/uL (0.0-0.8); MONO % 10.9 % (2.0-8.0); NEUTROPHILS % 60.4 % (36.0-66.0); PLATELET COUNT, AUTOMATED 265 10^3/uL (150-450); RED BLOOD COUNT 4.64 10^6/uL (4.30-6.10)
[2022-08-06 09:35] LABS: ALBUMIN 3.9 G/DL (3.2-5.2); ALKALINE PHOSPHATASE 73 U/L (46-116); ALT/SGPT 20 U/L (7.0-40); AST/SGOT 18 U/L (<34); BILIRUBIN,TOTAL 0.7 MG/DL (0.3-1.2); BLOOD UREA NITROGEN 14 MG/DL (9-23); CALCIUM LEVEL 9.1 MG/DL (8.3-10.6); CARBON DIOXIDE LEVEL 28 MMOL/L (20-31); CHLORIDE LEVEL 105 MMOL/L (98-107); CREATININE FOR GFR 0.86 MG/DL (0.70-1.30); GLOMERULAR FILTRATION RATE > 60.0 (>42); GLUCOSE, FASTING 94 MG/DL (74-106); POTASSIUM SERUM 4.6 MMOL/L (3.5-5.1); SODIUM LEVEL 140 MMOL/L (136-145); TOTAL PROTEIN 6.6 G/DL (5.7-8.2)
[2022-08-06 09:37] LABS: VITAMIN B12 LEVEL 1665 PG/ML (211-911)
== END ==
LOC: M LAB 08:17
PROVIDERS: ATTEND General Practice
DX: R53.83 Other fatigue (principal); E29.1 Testicular hypofunction; R68.89 Other general symptoms and signs; E53.8 Deficiency of other specified B group vitamins

== ENCOUNTER → 2022-09-21 | Outpatient (CLI) | payer MEDICARE, BC, OTHER ==
[~2022-09-21] MED LIST changes: +LISI10TA22 PO
== END ==
LOC: M LABSMTC 09:57
PROVIDERS: ATTEND Anesthesiology
DX: Z01.812 Encounter for preprocedural laboratory examination (principal); Z11.52 Encounter for screening for COVID-19

== ENCOUNTER 2022-09-23 08:27 | Day surgery (SDC) | payer MEDICARE, BC, OTHER ==
[~2022-09-23] VITALS: Ht 182.9 cm; Wt 116.1 kg
[~2022-09-23 08:27] MED LIST changes: +NS 1,000 ML IV ONE
[2022-09-23] MEDS ORDERED: propofoL 200 MG/20 ML VIAL As Ordered ONE ×2 (10:28→10:51)
[2022-09-23] MEDS ORDERED: LIDOCAINE 2% 100MG/5ML SDV (FOR ANES.) As Ordered ONE (10:28)
[2022-09-23 11:12] VITALS: BP 145/81
== END 2022-09-23 11:27 | disposition home or self-care (01) ==
LOC: M OPP 08:27
PROVIDERS: ATTEND Internal Medicine Gastroenterology
DX: Z12.11 Encounter for screening for malignant neoplasm of colon (principal); Z86.010 Personal history of colon polyps; K63.5 Polyp of colon; K64.0 First degree hemorrhoids; K57.30 Diverticulosis of large intestine without perforation or abscess without bleeding; K63.89 Other specified diseases of intestine; I10 Essential (primary) hypertension; E78.00 Pure hypercholesterolemia, unspecified; Z79.02 Long term (current) use of antithrombotics/antiplatelets; Z79.2 Long term (current) use of antibiotics; Z79.890 Hormone replacement therapy; Z79.899 Other long term (current) drug therapy; Z88.0 Allergy status to penicillin

== ENCOUNTER → 2022-11-03 | Outpatient (CLI) | payer MEDICARE, BC, OTHER ==
[~2022-11-03] MED LIST changes: -NS 1,000 ML IV ONE
[2022-11-03 08:47] LABS: BASO % 0.7 % (0.0-1.0); EOS # 0.2 10^3/uL (0.0-0.5); EOS % 2.9 % (0.0-3.0); HEMATOCRIT 44.5 % (42.0-52.0); HEMOGLOBIN 14.9 g/dl (13.5-17.5); LYMPH # 1.3 10^3/uL (1.5-5.0); MEAN CORPUSCULAR HEMOGLOBIN 30.7 pg (27.0-33.0); MEAN CORPUSCULAR HGB CONC 33.5 g/dl (32.0-36.5); MEAN CORPUSCULAR VOLUME 91.8 fl (80.0-96.0); MONO # 0.6 10^3/uL (0.0-0.8); MONO % 10.3 % (2.0-8.0); NEUTROPHILS # 3.7 10^3/uL (1.5-8.5); NEUTROPHILS % 63.6 % (36.0-66.0); PLATELET COUNT, AUTOMATED 277 10^3/uL (150-450); RED BLOOD COUNT 4.85 10^6/uL (4.30-6.10); WHITE BLOOD COUNT 5.8 10^3/uL (4.0-10.0)
== END ==
LOC: M LAB 07:43
PROVIDERS: ATTEND General Practice
DX: R53.83 Other fatigue (principal)

== ENCOUNTER → 2022-11-03 | Outpatient (CLI) | payer MEDICARE, BC, OTHER ==
[2022-11-03 08:48] LABS: BASO % 0.4 % (0.0-1.0); EOS # 0.2 10^3/uL (0.0-0.5); EOS % 2.7 % (0.0-3.0); HEMATOCRIT 44.7 % (42.0-52.0); HEMOGLOBIN 14.8 g/dl (13.5-17.5); LYMPH # 1.4 10^3/uL (1.5-5.0); LYMPH % 23.9 % (24.0-44.0); MEAN CORPUSCULAR HEMOGLOBIN 30.5 pg (27.0-33.0); MEAN CORPUSCULAR HGB CONC 33.1 g/dl (32.0-36.5); MEAN CORPUSCULAR VOLUME 92.2 fl (80.0-96.0); MONO # 0.6 10^3/uL (0.0-0.8); MONO % 10.8 % (2.0-8.0); NEUTROPHILS # 3.5 10^3/uL (1.5-8.5); NEUTROPHILS % 61.7 % (36.0-66.0); PLATELET COUNT, AUTOMATED 276 10^3/uL (150-450); RED BLOOD COUNT 4.85 10^6/uL (4.30-6.10); WHITE BLOOD COUNT 5.6 10^3/uL (4.0-10.0)
[2022-11-03 09:17] LABS: BLOOD UREA NITROGEN 14 MG/DL (9-23); CARBON DIOXIDE LEVEL 30 MMOL/L (20-31); CHLORIDE LEVEL 106 MMOL/L (98-107); CREATININE FOR GFR 0.97 MG/DL (0.70-1.30); GLOMERULAR FILTRATION RATE > 60.0 (>42); GLUCOSE, FASTING 88 MG/DL (74-106); POTASSIUM SERUM 4.4 MMOL/L (3.5-5.1); SODIUM LEVEL 140 MMOL/L (136-145)
== END ==
LOC: M LAB 07:47
PROVIDERS: ATTEND Nurse Practitioner Family
DX: C03.9 Malignant neoplasm of gum, unspecified (principal)

== ENCOUNTER → 2023-02-02 | Outpatient (REF) | payer MEDICARE, OTHER ==
[2023-02-02 13:11] LABS: BASO % 0.5 % (0.0-1.0); EOS # 0.1 10^3/uL (0.0-0.5); EOS % 1.8 % (0.0-3.0); HEMATOCRIT 43.1 % (42.0-52.0); HEMOGLOBIN 14.7 g/dl (13.5-17.5); LYMPH # 1.6 10^3/uL (1.5-5.0); LYMPH % 26.5 % (24.0-44.0); MEAN CORPUSCULAR HEMOGLOBIN 30.7 pg (27.0-33.0); MEAN CORPUSCULAR HGB CONC 34.1 g/dl (32.0-36.5); MONO # 0.6 10^3/uL (0.0-0.8); MONO % 10.4 % (2.0-8.0); NEUTROPHILS # 3.6 10^3/uL (1.5-8.5); NEUTROPHILS % 60.5 % (36.0-66.0); PLATELET COUNT, AUTOMATED 295 10^3/uL (150-450); RED BLOOD COUNT 4.79 10^6/uL (4.30-6.10)
[2023-02-02 13:38] LABS: ALBUMIN 4.5 G/DL (3.2-5.2); ALKALINE PHOSPHATASE 89 U/L (46-116); ALT/SGPT 20 U/L (7.0-40); AST/SGOT 12 U/L (<34); BILIRUBIN,TOTAL 0.8 MG/DL (0.3-1.2); BLOOD UREA NITROGEN 18 MG/DL (9-23); CALCIUM LEVEL 10.2 MG/DL (8.3-10.6); CARBON DIOXIDE LEVEL 28 MMOL/L (20-31); CHLORIDE LEVEL 105 MMOL/L (98-107); CREATININE FOR GFR 0.99 MG/DL (0.70-1.30); GLOMERULAR FILTRATION RATE > 60.0 (>42); GLUCOSE, FASTING 87 MG/DL (74-106); POTASSIUM SERUM 4.6 MMOL/L (3.5-5.1); SODIUM LEVEL 139 MMOL/L (136-145); TOTAL PROTEIN 7.2 G/DL (5.7-8.2)
== END ==
LOC: M LABDRWAD 12:22
PROVIDERS: ATTEND General Practice
DX: E55.9 Vitamin D deficiency, unspecified (principal); R53.83 Other fatigue; Z79.899 Other long term (current) drug therapy

== ENCOUNTER → 2023-02-16 | Outpatient (REF) | payer MEDICARE, OTHER ==
[2023-02-16 13:45] LABS: BASO % 0.5 % (0.0-1.0); EOS # 0.1 10^3/uL (0.0-0.5); EOS % 1.8 % (0.0-3.0); HEMATOCRIT 43.9 % (42.0-52.0); HEMOGLOBIN 14.6 g/dl (13.5-17.5); LYMPH # 1.4 10^3/uL (1.5-5.0); LYMPH % 25.2 % (24.0-44.0); MEAN CORPUSCULAR HEMOGLOBIN 30.8 pg (27.0-33.0); MEAN CORPUSCULAR HGB CONC 33.3 g/dl (32.0-36.5); MEAN CORPUSCULAR VOLUME 92.6 fl (80.0-96.0); MONO # 0.7 10^3/uL (0.0-0.8); MONO % 12.2 % (2.0-8.0); NEUTROPHILS # 3.3 10^3/uL (1.5-8.5); NEUTROPHILS % 60.1 % (36.0-66.0); PLATELET COUNT, AUTOMATED 254 10^3/uL (150-450); RED BLOOD COUNT 4.74 10^6/uL (4.30-6.10); WHITE BLOOD COUNT 5.5 10^3/uL (4.0-10.0)
[2023-02-16 14:19] LABS: ALBUMIN 4.3 G/DL (3.2-5.2); ALKALINE PHOSPHATASE 82 U/L (46-116); ALT/SGPT 20 U/L (7.0-40); AST/SGOT 11 U/L (<34); BILIRUBIN,TOTAL 0.6 MG/DL (0.3-1.2); BLOOD UREA NITROGEN 12 MG/DL (9-23); CALCIUM LEVEL 10.2 MG/DL (8.3-10.6); CARBON DIOXIDE LEVEL 29 MMOL/L (20-31); CHLORIDE LEVEL 106 MMOL/L (98-107); CREATININE FOR GFR 0.87 MG/DL (0.70-1.30); GLOMERULAR FILTRATION RATE > 60.0 (>42); GLUCOSE, FASTING 70 MG/DL (74-106); POTASSIUM SERUM 4.7 MMOL/L (3.5-5.1); SODIUM LEVEL 138 MMOL/L (136-145); TOTAL PROTEIN 6.9 G/DL (5.7-8.2)
[2023-02-16 14:20] LABS: THYROID STIMULATING HORMONE 1.247 uIU/ML (0.55-4.78)
== END ==
LOC: M SFHCADAM 09:20
PROVIDERS: ATTEND Family Medicine
DX: R42 Dizziness and giddiness (principal); Z79.899 Other long term (current) drug therapy

== ENCOUNTER → 2023-02-22 | Outpatient (CLI) | payer MEDICARE, BC, OTHER ==
[2023-02-22 09:53] LABS: BASO % 0.6 % (0.0-1.0); EOS # 0.1 10^3/uL (0.0-0.5); EOS % 2.6 % (0.0-3.0); HEMATOCRIT 42.7 % (42.0-52.0); HEMOGLOBIN 14.3 g/dl (13.5-17.5); LYMPH # 1.2 10^3/uL (1.5-5.0); LYMPH % 24.4 % (24.0-44.0); MEAN CORPUSCULAR HEMOGLOBIN 30.5 pg (27.0-33.0); MEAN CORPUSCULAR HGB CONC 33.5 g/dl (32.0-36.5); MONO # 0.5 10^3/uL (0.0-0.8); MONO % 10.1 % (2.0-8.0); NEUTROPHILS # 3.1 10^3/uL (1.5-8.5); NEUTROPHILS % 61.9 % (36.0-66.0); PLATELET COUNT, AUTOMATED 283 10^3/uL (150-450); RED BLOOD COUNT 4.69 10^6/uL (4.30-6.10); WHITE BLOOD COUNT 5.1 10^3/uL (4.0-10.0)
[2023-02-22 10:13] LABS: ALBUMIN 4.2 G/DL (3.2-5.2); ALKALINE PHOSPHATASE 75 U/L (46-116); ALT/SGPT 20 U/L (7.0-40); AST/SGOT 12 U/L (<34); BILIRUBIN,TOTAL 0.8 MG/DL (0.3-1.2); BLOOD UREA NITROGEN 13 MG/DL (9-23); CALCIUM LEVEL 8.9 MG/DL (8.3-10.6); CARBON DIOXIDE LEVEL 28 MMOL/L (20-31); CHLORIDE LEVEL 108 MMOL/L (98-107); GLOMERULAR FILTRATION RATE > 60.0 (>42); GLUCOSE, FASTING 97 MG/DL (74-106); POTASSIUM SERUM 4.3 MMOL/L (3.5-5.1); SODIUM LEVEL 143 MMOL/L (136-145); TOTAL PROTEIN 6.8 G/DL (5.7-8.2)
[2023-02-22 10:18] LABS: TOTAL 25(OH) VITAMIN D 43.6 NG/ML (20.0-100.0); VITAMIN B12 LEVEL 720 PG/ML (211-911)
== END ==
LOC: M LAB 09:07
PROVIDERS: ATTEND General Practice
DX: A78 Q fever (principal); R53.83 Other fatigue; E55.9 Vitamin D deficiency, unspecified; E53.8 Deficiency of other specified B group vitamins; R42 Dizziness and giddiness; E78.5 Hyperlipidemia, unspecified; K21.9 Gastro-esophageal reflux disease without esophagitis; I10 Essential (primary) hypertension; R09.89 Other specified symptoms and signs involving the circulatory and respiratory systems; Z87.891 Personal history of nicotine dependence

== ENCOUNTER → 2023-02-22 | Outpatient (CLI) | payer MEDICARE, BC, OTHER | LOC: M RAD 12:28 | PROVIDERS: ATTEND Family Medicine | DX: R42 Dizziness and giddiness (principal); E78.5 Hyperlipidemia, unspecified; K21.9 Gastro-esophageal reflux disease without esophagitis; I10 Essential (primary) hypertension; Z87.891 Personal history of nicotine dependence ==

== ENCOUNTER → 2023-06-17 | Outpatient (REF) | payer MEDICARE, BC, OTHER ==
[2023-06-17 16:44] LABS: HEMATOCRIT 43.3 % (42.0-52.0); HEMOGLOBIN 14.7 g/dl (13.5-17.5); MEAN CORPUSCULAR HEMOGLOBIN 30.8 pg (27.0-33.0); MEAN CORPUSCULAR HGB CONC 33.9 g/dl (32.0-36.5); MEAN CORPUSCULAR VOLUME 90.6 fl (80.0-96.0); PLATELET COUNT, AUTOMATED 277 10^3/uL (150-450); RED BLOOD COUNT 4.78 10^6/uL (4.30-6.10); WHITE BLOOD COUNT 6.7 10^3/uL (4.0-10.0)
[2023-06-17 17:06] LABS: ALBUMIN 4.3 G/DL (3.2-5.2); ALKALINE PHOSPHATASE 76 U/L (46-116); ALT/SGPT 18 U/L (7.0-40); AST/SGOT 16 U/L (<34); BILIRUBIN,TOTAL 0.5 MG/DL (0.3-1.2); BLOOD UREA NITROGEN 13 MG/DL (9-23); CALCIUM LEVEL 9.4 MG/DL (8.3-10.6); CARBON DIOXIDE LEVEL 28 MMOL/L (20-31); CHLORIDE LEVEL 101 MMOL/L (98-107); CHOLESTEROL LEVEL 244 MG/DL (<200); CHOLESTEROL RISK RATIO 5.74 (<5); CREATININE FOR GFR 0.83 MG/DL (0.70-1.30); GLOMERULAR FILTRATION RATE > 60.0 (>42); GLUCOSE, FASTING 79 MG/DL (74-106); HDL CHOLESTEROL 42.5 MG/DL (>40); LDL CHOLESTEROL 175.3 MG/DL (<100); NON-HDL-C 201.5 MG/DL; POTASSIUM SERUM 4.3 MMOL/L (3.5-5.1); SODIUM LEVEL 139 MMOL/L (136-145); THYROID STIMULATING HORMONE 1.677 uIU/ML (0.55-4.78); TOTAL PROTEIN 7.1 G/DL (5.7-8.2); TRIGLYCERIDES LEVEL 131 MG/DL (<150)
== END ==
LOC: M SFHCADAM 13:44
PROVIDERS: ATTEND Family Medicine
DX: E78.5 Hyperlipidemia, unspecified (principal); G47.33 Obstructive sleep apnea (adult) (pediatric); G62.9 Polyneuropathy, unspecified; Z12.5 Encounter for screening for malignant neoplasm of prostate

== ENCOUNTER → 2023-11-22 | Outpatient (CLI) | payer MEDICARE, BC | LOC: M WHC 12:22 | PROVIDERS: ATTEND Family Medicine | DX: R59.1 Generalized enlarged lymph nodes (principal); Z85.828 Personal history of other malignant neoplasm of skin ==

== ENCOUNTER → 2023-11-25 | Outpatient (REF) | payer MEDICARE, BC ==
[2023-11-25 13:06] LABS: BLOOD UREA NITROGEN 16 MG/DL (9-23); CALCIUM LEVEL 9.6 MG/DL (8.3-10.6); CARBON DIOXIDE LEVEL 30 MMOL/L (20-31); CHLORIDE LEVEL 109 MMOL/L (98-107); CREATININE FOR GFR 0.89 MG/DL (0.70-1.30); GLOMERULAR FILTRATION RATE > 60.0 (>42); GLUCOSE, FASTING 75 MG/DL (74-106); POTASSIUM SERUM 4.5 MMOL/L (3.5-5.1); SODIUM LEVEL 140 MMOL/L (136-145)
[2023-11-25 13:22] LABS: BASO % 0.5 % (0.0-1.0); EOS # 0.1 10^3/uL (0.0-0.5); EOS % 1.1 % (0.0-3.0); HEMATOCRIT 46.1 % (42.0-52.0); HEMOGLOBIN 15.2 g/dl (13.5-17.5); LYMPH # 1.1 10^3/uL (1.5-5.0); LYMPH % 16.8 % (24.0-44.0); MEAN CORPUSCULAR HEMOGLOBIN 30.5 pg (27.0-33.0); MEAN CORPUSCULAR VOLUME 92.6 fl (80.0-96.0); MONO # 0.8 10^3/uL (0.0-0.8); NEUTROPHILS # 4.6 10^3/uL (1.5-8.5); PLATELET COUNT, AUTOMATED 306 10^3/uL (150-450); RED BLOOD COUNT 4.98 10^6/uL (4.30-6.10); WHITE BLOOD COUNT 6.7 10^3/uL (4.0-10.0)
== END ==
LOC: M SFHCADAM 09:15
PROVIDERS: ATTEND Family Medicine
DX: R59.0 Localized enlarged lymph nodes (principal); Z85.89 Personal history of malignant neoplasm of other organs and systems; C32.0 Malignant neoplasm of glottis

== ENCOUNTER → 2023-11-26 | Outpatient (CLI) | payer MEDICARE, BC ==
[~2023-11-26] MED LIST changes: +ISOVUE-370 76% 100ML VIAL As Ordered ONE
== END ==
LOC: M RAD 07:01
PROVIDERS: ATTEND Family Medicine
DX: R59.0 Localized enlarged lymph nodes (principal); C03.9 Malignant neoplasm of gum, unspecified; Z85.828 Personal history of other malignant neoplasm of skin
CPT/HCPCS: 70491; Q9967

== ENCOUNTER → 2023-12-23 | Outpatient (CLI) | payer MEDICARE, BC ==
[~2023-12-23] MED LIST changes: -ISOVUE-370 76% 100ML VIAL As Ordered ONE; +LIDOCAINE 1% MDV 20ML VIAL As Ordered ONE
[2023-12-23 10:24] VITALS: BP 124/82; TEMP 98.2; O2SAT 98
== END ==
LOC: M IRPRO 10:16
PROVIDERS: ATTEND Nurse Practitioner Family
DX: C03.9 Malignant neoplasm of gum, unspecified (principal)

== ENCOUNTER 2024-02-19 14:24 | Emergency (ER) | payer MEDICARE, BC ==
[~2024-02-19] VITALS: Ht 182.9 cm; Wt 111.2 kg
[~2024-02-19 14:24] MED LIST changes: -LIDOCAINE 1% MDV 20ML VIAL As Ordered ONE
[2024-02-19] MEDS ORDERED: ISOVUE-370 76% 100ML VIAL As Ordered ONE (15:57)
[2024-02-19 16:02] LABS: BASO % 0.2 % (0.0-1.0); EOS # 0.1 10^3/uL (0.0-0.5); EOS % 1.4 % (0.0-3.0); HEMATOCRIT 41.2 % (42.0-52.0); HEMOGLOBIN 14.2 g/dl (13.5-17.5); LYMPH # 1.5 10^3/uL (1.5-5.0); LYMPH % 18.5 % (24.0-44.0); MEAN CORPUSCULAR HEMOGLOBIN 31.3 pg (27.0-33.0); MEAN CORPUSCULAR HGB CONC 34.5 g/dl (32.0-36.5); MEAN CORPUSCULAR VOLUME 90.7 fl (80.0-96.0); MONO # 1.1 10^3/uL (0.0-0.8); MONO % 13.2 % (2.0-8.0); NEUTROPHILS # 5.3 10^3/uL (1.5-8.5); NEUTROPHILS % 66.3 % (36.0-66.0); PLATELET COUNT, AUTOMATED 333 10^3/uL (150-450); RED BLOOD COUNT 4.54 10^6/uL (4.30-6.10); WHITE BLOOD COUNT 8.1 10^3/uL (4.0-10.0)
[2024-02-19 16:32] LABS: BLOOD UREA NITROGEN 16 MG/DL (9-23); CALCIUM LEVEL 9.1 MG/DL (8.3-10.6); CARBON DIOXIDE LEVEL 26 MMOL/L (20-31); CHLORIDE LEVEL 106 MMOL/L (98-107); CREATININE FOR GFR 0.96 MG/DL (0.70-1.30); GLOMERULAR FILTRATION RATE > 60.0 (>42); GLUCOSE, FASTING 97 MG/DL (74-106); POTASSIUM SERUM 4.6 MMOL/L (3.5-5.1); SODIUM LEVEL 139 MMOL/L (136-145)
[2024-02-19] MEDS ORDERED: TRAM50TA2 PO (21:07)
[2024-02-19] MEDS ORDERED: CLIN150C17 PO (21:07)
[2024-02-19] MEDS: traMADol 50 MG TAB (HOME DOSE PACK) PO ONE (21:20)
[2024-02-19 21:21] VITALS: BP 131/72; TEMP 97.7; O2SAT 98
== END 2024-02-19 21:29 | disposition home or self-care (01) ==
LOC: M ED 14:24
DX: R22.0 Localized swelling, mass and lump, head (principal); I10 Essential (primary) hypertension; E78.5 Hyperlipidemia, unspecified; F10.10 Alcohol abuse, uncomplicated; Z87.891 Personal history of nicotine dependence; Z88.0 Allergy status to penicillin; Z79.899 Other long term (current) drug therapy
CPT/HCPCS: 36415; 70491; 80047; 80048; 85025; 87070; 87077; 87186; 87205; 99284; Q9967

== ENCOUNTER 2024-03-12 04:11 | Emergency (ER) | payer MEDICARE, BC ==
[~2024-03-12] VITALS: Ht 182.9 cm; Wt 113.6 kg
[~2024-03-12 04:11] MED LIST changes: +CLIN150C17 PO; +DOXY100C82 PO; +TRAM50TA2 PO
[2024-03-12 04:35] LABS: HEMATOCRIT 38.8 % (42.0-52.0); HEMOGLOBIN 13.4 g/dl (13.5-17.5); MEAN CORPUSCULAR HEMOGLOBIN 31.2 pg (27.0-33.0); MEAN CORPUSCULAR HGB CONC 34.5 g/dl (32.0-36.5); MEAN CORPUSCULAR VOLUME 90.2 fl (80.0-96.0); PLATELET COUNT, AUTOMATED 353 10^3/uL (150-450); WHITE BLOOD COUNT 12.8 10^3/uL (4.0-10.0)
[2024-03-12] MEDS: METOPROLOL 5 MG/5 ML VIAL IV SCH (04:37)
[2024-03-12 04:47] LABS: INR 1.18; PARTIAL THROMBOPLASTIN TIME 24.5 SECONDS (24.8-34.2); PROTHROMBIN TIME 14.6 SECONDS (12.5-14.5)
[2024-03-12 05:00] LABS: BLOOD UREA NITROGEN 14 MG/DL (9-23); CALCIUM LEVEL 9.9 MG/DL (8.3-10.6); CARBON DIOXIDE LEVEL 26 MMOL/L (20-31); CHLORIDE LEVEL 106 MMOL/L (98-107); CREATININE FOR GFR 0.84 MG/DL (0.70-1.30); GLOMERULAR FILTRATION RATE > 60.0 (>42); GLUCOSE, FASTING 126 MG/DL (74-106); POTASSIUM SERUM 4.3 MMOL/L (3.5-5.1); SODIUM LEVEL 138 MMOL/L (136-145)
[2024-03-12] MEDS: DIGOXIN INJ 0.5 MG/2 ML AMP IV STA (05:16)
[2024-03-12] MEDS: NS 500 ML IV ONE (05:17)
[2024-03-12] MEDS ORDERED: AMIODARONE 150MG/3ML VIAL IVP STA ×2 (06:52→07:05)
[2024-03-12] MEDS ORDERED: AMIODARONE HCL 150 MG in IV 1 EA IV ONE (07:15)
[2024-03-12] MEDS: AMIODARONE HCL 150 MG in IV 1 EA IV ONE ×3 (07:20→15:24)
[2024-03-12] MEDS ORDERED: ATOR1TAB19 PO (07:21)
[2024-03-12] MEDS ORDERED: GABA-1171 PO (07:21)
[2024-03-12] MEDS ORDERED: TRAM50TA2 PO (07:21)
[2024-03-12] MEDS ORDERED: HOME MED LIST COMPLETE! XX SCH (07:25)
[2024-03-12 09:32] LABS: HEMATOCRIT 36.1 % (42.0-52.0); HEMOGLOBIN 12.3 g/dl (13.5-17.5)
[2024-03-12 17:15] VITALS: BP 144/77
[2024-03-12] MEDS: METOPROLOL TART 50 MG TAB PO ONE (17:15)
[2024-03-12 23:45] VITALS: BP 142/78; TEMP 98
[2024-03-13 00:05] VITALS: O2SAT 96
[2024-03-13] MEDS: traMADol 50 MG TAB PO ONE (00:05)
== END 2024-03-13 00:12 | disposition short-term general hospital (02) ==
LOC: M ED 04:11 → EDBD 04:11 → M ED 03-13 00:12
DX: R22.1 Localized swelling, mass and lump, neck (principal); I48.91 Unspecified atrial fibrillation; I10 Essential (primary) hypertension; E78.5 Hyperlipidemia, unspecified; Z79.899 Other long term (current) drug therapy; Z88.0 Allergy status to penicillin
CPT/HCPCS: 80048; 83735; 85014; 85018; 85027; 85610; 85730; 93005; 93306; 96374; 96375; 96376; 99285; J0283; J1160

== ENCOUNTER → 2024-04-03 | Outpatient (CLI) | payer MEDICARE, BC ==
[~2024-04-03] MED LIST changes: +ATOR1TAB19 PO; +CIPR500S PO; +ELIQ5TAB PO; +GABA-1171 PO; +METO75TA PO
== END ==
LOC: M ONCR 13:02
PROVIDERS: ATTEND General Practice
DX: C03.1 Malignant neoplasm of lower gum (principal); Z87.891 Personal history of nicotine dependence; Z98.890 Other specified postprocedural states; Z88.0 Allergy status to penicillin; Z88.1 Allergy status to other antibiotic agents; Z79.01 Long term (current) use of anticoagulants; Z79.899 Other long term (current) drug therapy; Z80.8 Family history of malignant neoplasm of other organs or systems; Z80.0 Family history of malignant neoplasm of digestive organs; Z80.1 Family history of malignant neoplasm of trachea, bronchus and lung; Z93.6 Other artificial openings of urinary tract status

== ENCOUNTER → 2024-05-02 | Outpatient (CLI) | payer MEDICARE, BC ==
[~2024-05-02] VITALS: Ht 182.9 cm; Wt 106.8 kg
[~2024-05-02] MED LIST changes: +BACT400T PO; +BACTDSTA PO; +LIDO30CR18 TOP; +LIDOCAINE 1% MDV 20ML VIAL As Ordered ONE; +MIDAZOLAM INJ 2MG/2ML VIAL As Ordered ONE; +ONDA-84 PO; +PROC10TA5 PO; +VANCOMYCIN HCL 1,000 MG, VIAL MATE ADAPTER 1 EACH in NS 250 ML IV ONE; +fentaNYL 100 MCG/2 ML INJECTION As Ordered ONE
[2024-05-02 07:25] VITALS: TEMP 97.8
[2024-05-02] MEDS: NS 1,000 ML IV SCH (08:02)
[2024-05-02] MEDS: VANCOMYCIN HCL 750 MG, VIAL MATE ADAPTER 1 EACH in D5W 250 ML IV ONE ×2 (08:02)
[2024-05-02 10:15] VITALS: BP 112/62; O2SAT 97
== END ==
LOC: M IRPRO 06:53
PROVIDERS: ATTEND Specialist
DX: C76.0 Malignant neoplasm of head, face and neck (principal)
CPT/HCPCS: 36561; C1894; J1642; J2250; J3010; J3370

== ENCOUNTER → 2024-05-08 | Outpatient (RCR) | payer MEDICARE, BC ==
[~2024-05-08] MED LIST changes: -LIDOCAINE 1% MDV 20ML VIAL As Ordered ONE; -MIDAZOLAM INJ 2MG/2ML VIAL As Ordered ONE; -VANCOMYCIN HCL 1,000 MG, VIAL MATE ADAPTER 1 EACH in NS 250 ML IV ONE; -fentaNYL 100 MCG/2 ML INJECTION As Ordered ONE
== END ==
LOC: M ONCR 04-19 14:22
PROVIDERS: ATTEND General Practice
DX: Z51.0 Encounter for antineoplastic radiation therapy (principal); C03.1 Malignant neoplasm of lower gum

== ENCOUNTER → 2024-05-24 | Outpatient (CLI) | payer MEDICARE, BC ==
[~2024-05-24] MED LIST changes: +FURO20TA2 PO; +ISOVUE-370 76% 100ML VIAL As Ordered ONE
== END ==
LOC: M RAD 15:44
PROVIDERS: ATTEND General Practice
DX: C03.1 Malignant neoplasm of lower gum (principal); R91.1 Solitary pulmonary nodule; Z87.81 Personal history of (healed) traumatic fracture; N62 Hypertrophy of breast; K76.89 Other specified diseases of liver

== ENCOUNTER → 2024-06-08 | Outpatient (RCR) | payer MEDICARE, BC ==
[~2024-06-08] MED LIST changes: +FENT1DIS14 TOP; -ISOVUE-370 76% 100ML VIAL As Ordered ONE; +LIDO100S29 PO; +NYST-38 PO; +OXYC1SOL3 PEG; +TRIA1CR80 TOP
== END ==
LOC: M ONCR 05-09 13:38
PROVIDERS: ATTEND General Practice
DX: Z51.0 Encounter for antineoplastic radiation therapy (principal); C03.1 Malignant neoplasm of lower gum

== ENCOUNTER → 2024-06-12 | Outpatient (CLI) | payer MEDICARE, BC ==
[~2024-06-12] MED LIST changes: -FENT1DIS14 TOP
[2024-06-12 10:06] LABS: HEMATOCRIT 24.6 % (42.0-52.0); HEMOGLOBIN 8.2 g/dl (13.5-17.5); MEAN CORPUSCULAR HEMOGLOBIN 28.5 pg (27.0-33.0); MEAN CORPUSCULAR HGB CONC 33.3 g/dl (32.0-36.5); MEAN CORPUSCULAR VOLUME 85.4 fl (80.0-96.0); PLATELET COUNT, AUTOMATED 143 10^3/uL (150-450); RED BLOOD COUNT 2.88 10^6/uL (4.30-6.10)
[2024-06-12 10:30] LABS: ALBUMIN 3.3 G/DL (3.2-5.2); ALKALINE PHOSPHATASE 60 U/L (40-129); ALT/SGPT < 9 U/L (7.0-40); AST/SGOT < 8 U/L (<34); BILIRUBIN,TOTAL 0.4 MG/DL (0.3-1.2); BLOOD UREA NITROGEN 23 MG/DL (9-23); CARBON DIOXIDE LEVEL 26 MMOL/L (20-31); CHLORIDE LEVEL 100 MMOL/L (98-107); CREATININE FOR GFR 0.93 MG/DL (0.70-1.30); GLOMERULAR FILTRATION RATE > 60.0 (>42); GLUCOSE, FASTING 100 MG/DL (74-106); IRON (FE) 28 UG/DL (65-175); PERCENT SATURATION 10.6 % (19.7-50.0); POTASSIUM SERUM 5.3 MMOL/L (3.5-5.1); SODIUM LEVEL 135 MMOL/L (136-145); TOTAL IRON BINDING CAPACITY 265 UG/DL (250-425); TOTAL PROTEIN 6.4 G/DL (5.7-8.2)
[2024-06-12 10:32] LABS: FERRITIN 315.8 NG/ML (10.5-307.3); TOTAL 25(OH) VITAMIN D 44.5 NG/ML (20.0-100.0)
[2024-06-12 10:49] LABS: ANISOCYTOSIS 1+; LYMPHOCYTES 6 % (16-44); MONOCYTES 29 % (0-5); NEUTROPHILS 45 % (28-66)
[2024-06-12 10:50] LABS: HYPOCHROMASIA 1+
[2024-06-12 10:51] LABS: PLATELET ESTIMATE NORMAL (NORMAL)
== END ==
LOC: M LAB 09:07
PROVIDERS: ATTEND Nurse Practitioner Family
DX: E55.9 Vitamin D deficiency, unspecified (principal); Z85.818 Personal history of malignant neoplasm of other sites of lip, oral cavity, and pharynx; A77.0 Spotted fever due to Rickettsia rickettsii; R21 Rash and other nonspecific skin eruption; K21.9 Gastro-esophageal reflux disease without esophagitis; A69.20 Lyme disease, unspecified; G47.33 Obstructive sleep apnea (adult) (pediatric); D51.3 Other dietary vitamin B12 deficiency anemia; E53.9 Vitamin B deficiency, unspecified; I10 Essential (primary) hypertension; E78.2 Mixed hyperlipidemia; L21.8 Other seborrheic dermatitis

== ENCOUNTER 2024-06-28 14:40 | Emergency (ER) | payer MEDICARE, BC ==
[~2024-06-28] VITALS: Ht 182.9 cm; Wt 104.5 kg
[~2024-06-28 14:40] MED LIST changes: +FENT1DIS14 TOP; +NARC1SPR NARES
[2024-06-28] MEDS ORDERED: METO1TAB7 (15:12)
[2024-06-28 17:07] LABS: HEMATOCRIT 23.7 % (42.0-52.0); MEAN CORPUSCULAR HEMOGLOBIN 28.9 pg (27.0-33.0); MEAN CORPUSCULAR HGB CONC 33.8 g/dl (32.0-36.5); MEAN CORPUSCULAR VOLUME 85.6 fl (80.0-96.0); PLATELET COUNT, AUTOMATED 291 10^3/uL (150-450); RED BLOOD COUNT 2.77 10^6/uL (4.30-6.10); WHITE BLOOD COUNT 5.4 10^3/uL (4.0-10.0)
[2024-06-28] MEDS: OXYMETAZOLINE 0.05% NASAL SPRAY (AFRIN) ONE (17:27)
[2024-06-28 18:30] VITALS: BP 142/67; TEMP 99; O2SAT 98
[2024-06-29] MEDS ORDERED: IVER1TAB PO (11:53)
== END 2024-06-28 18:33 | disposition home or self-care (01) ==
LOC: EDBD 14:40 → M ED 14:40
DX: R04.0 Epistaxis (principal); C76.0 Malignant neoplasm of head, face and neck; C03.9 Malignant neoplasm of gum, unspecified; I10 Essential (primary) hypertension; E78.5 Hyperlipidemia, unspecified; Z92.3 Personal history of irradiation; Z79.01 Long term (current) use of anticoagulants; Z79.899 Other long term (current) drug therapy; Z88.0 Allergy status to penicillin

== ENCOUNTER 2024-06-30 08:34 | Outpatient (RCR) | payer MEDICARE, BC ==
[~2024-06-30 08:34] MED LIST changes: +IVER1TAB PO; +METO1TAB7
== END 2024-07-08 ==
LOC: M ONCR 08:34
PROVIDERS: ATTEND General Practice
DX: Z51.0 Encounter for antineoplastic radiation therapy (principal); C03.1 Malignant neoplasm of lower gum

== ENCOUNTER → 2024-07-11 | Outpatient (REF) | payer MEDICARE, OTHER | LOC: M SFHCWOUN 17:21 | PROVIDERS: ATTEND Surgery | DX: S11.90XA Unspecified open wound of unspecified part of neck, initial encounter (principal); L57.8 Other skin changes due to chronic exposure to nonionizing radiation; C44.42 Squamous cell carcinoma of skin of scalp and neck; X58.XXXA Exposure to other specified factors, initial encounter; Y92.9 Unspecified place or not applicable; Y93.9 Activity, unspecified; Y99.9 Unspecified external cause status ==

== ENCOUNTER → 2024-07-11 | Outpatient (CLI) | payer MEDICARE, BC | LOC: M ONCR 12:45 | PROVIDERS: ATTEND General Practice | DX: R21 Rash and other nonspecific skin eruption (principal); R22.0 Localized swelling, mass and lump, head; L59.8 Other specified disorders of the skin and subcutaneous tissue related to radiation; S11.90XA Unspecified open wound of unspecified part of neck, initial encounter; W88.8XXA Exposure to other ionizing radiation, initial encounter ==

== ENCOUNTER → 2024-07-19 | Outpatient (CLI) | payer MEDICARE, BC ==
[~2024-07-19] MED LIST changes: +HYDR-3363 PO; +ISOVUE-370 76% 100ML VIAL As Ordered ONE; +K2 P1TAB PO; +LIDVISCBTL PO; -METO1TAB7; +METO1TAB7 PO; +NACCAP PO; +OMEGCAP4 PO; +OXYC1SOL3 PO; +QUER500C PO; +[UNRECOGNIZED DRUG - CODE] PO
== END ==
LOC: M RAD 12:36
PROVIDERS: ATTEND General Practice
DX: C03.1 Malignant neoplasm of lower gum (principal); C78.01 Secondary malignant neoplasm of right lung; C78.02 Secondary malignant neoplasm of left lung; N28.1 Cyst of kidney, acquired; K76.89 Other specified diseases of liver; K57.30 Diverticulosis of large intestine without perforation or abscess without bleeding
CPT/HCPCS: 70491; 71260; 74177; Q9967

== ENCOUNTER → 2024-07-20 | Outpatient (CLI) | payer MEDICARE, BC ==
[~2024-07-20] MED LIST changes: -ISOVUE-370 76% 100ML VIAL As Ordered ONE
== END ==
LOC: M ONCR 11:45
PROVIDERS: ATTEND General Practice
DX: C78.01 Secondary malignant neoplasm of right lung (principal); C78.02 Secondary malignant neoplasm of left lung; C03.1 Malignant neoplasm of lower gum; Z71.2 Person consulting for explanation of examination or test findings

== ENCOUNTER → 2024-07-24 | Outpatient (CLI) | payer MEDICARE, BC ==
[2024-07-24 10:53] LABS: BASO % 0.3 % (0.0-1.0); EOS # 0.2 10^3/uL (0.0-0.5); EOS % 2.1 % (0.0-3.0); HEMATOCRIT 24.3 % (42.0-52.0); HEMOGLOBIN 7.9 g/dl (13.5-17.5); LYMPH # 0.4 10^3/uL (1.5-5.0); LYMPH % 5.2 % (24.0-44.0); MEAN CORPUSCULAR HEMOGLOBIN 29.6 pg (27.0-33.0); MEAN CORPUSCULAR HGB CONC 32.5 g/dl (32.0-36.5); MONO % 12.6 % (2.0-8.0); NEUTROPHILS % 79.1 % (36.0-66.0); PLATELET COUNT, AUTOMATED 254 10^3/uL (150-450); RED BLOOD COUNT 2.67 10^6/uL (4.30-6.10); WHITE BLOOD COUNT 7.6 10^3/uL (4.0-10.0)
[2024-07-24 11:23] LABS: ALBUMIN 3.3 G/DL (3.2-5.2); ALKALINE PHOSPHATASE 67 U/L (40-129); ALT/SGPT 14 U/L (7.0-40); AST/SGOT 12 U/L (<34); BILIRUBIN,TOTAL 0.4 MG/DL (0.3-1.2); BLOOD UREA NITROGEN 26 MG/DL (9-23); CALCIUM LEVEL 9.7 MG/DL (8.3-10.6); CARBON DIOXIDE LEVEL 27 MMOL/L (20-31); CHLORIDE LEVEL 103 MMOL/L (98-107); CREATININE FOR GFR 0.98 MG/DL (0.70-1.30); GLOMERULAR FILTRATION RATE > 60.0 (>42); GLUCOSE, FASTING 99 MG/DL (74-106); POTASSIUM SERUM 4.9 MMOL/L (3.5-5.1); SODIUM LEVEL 138 MMOL/L (136-145); TOTAL IRON BINDING CAPACITY 289 UG/DL (250-425)
[2024-07-24 11:24] LABS: IRON (FE) 19 UG/DL (65-175); PERCENT SATURATION 6.6 % (19.7-50.0)
[2024-07-24 11:31] LABS: FERRITIN 402.2 NG/ML (10.5-307.3)
[2024-07-24 11:32] LABS: TOTAL 25(OH) VITAMIN D 43.1 NG/ML (20.0-100.0)
== END ==
LOC: M LAB 10:19
PROVIDERS: ATTEND General Practice
DX: Z85.818 Personal history of malignant neoplasm of other sites of lip, oral cavity, and pharynx (principal); A69.20 Lyme disease, unspecified; E55.9 Vitamin D deficiency, unspecified; E53.9 Vitamin B deficiency, unspecified; A77.0 Spotted fever due to Rickettsia rickettsii; R21 Rash and other nonspecific skin eruption; L21.8 Other seborrheic dermatitis; D51.3 Other dietary vitamin B12 deficiency anemia; I10 Essential (primary) hypertension; E78.2 Mixed hyperlipidemia; G47.33 Obstructive sleep apnea (adult) (pediatric); K21.9 Gastro-esophageal reflux disease without esophagitis; D89.9 Disorder involving the immune mechanism, unspecified; E34.9 Endocrine disorder, unspecified

== ENCOUNTER → 2024-07-24 | Outpatient (REF) | payer MEDICARE, BC | LOC: M SFHCWOUN 13:48 | PROVIDERS: ATTEND Surgery | DX: S11.90XA Unspecified open wound of unspecified part of neck, initial encounter (principal); C44.42 Squamous cell carcinoma of skin of scalp and neck ==

== ENCOUNTER 2024-08-04 09:38 | Outpatient (RCR) | payer MEDICARE, BC ==
[2024-04-03 13:54] VITALS: BP 123/69; TEMP 96.4; O2SAT 97
[2024-04-03 14:20] LABS: BASO % 0.3 % (0.0-1.0); EOS # 0.1 10^3/uL (0.0-0.5); EOS % 0.6 % (0.0-3.0); HEMATOCRIT 31.1 % (42.0-52.0); HEMOGLOBIN 10.4 g/dl (13.5-17.5); LYMPH # 1.3 10^3/uL (1.5-5.0); LYMPH % 13.1 % (24.0-44.0); MEAN CORPUSCULAR HGB CONC 33.4 g/dl (32.0-36.5); MEAN CORPUSCULAR VOLUME 89.6 fl (80.0-96.0); MONO # 1.2 10^3/uL (0.0-0.8); MONO % 11.9 % (2.0-8.0); NEUTROPHILS # 7.3 10^3/uL (1.5-8.5); NEUTROPHILS % 72.7 % (36.0-66.0); PLATELET COUNT, AUTOMATED 537 10^3/uL (150-450); RED BLOOD COUNT 3.47 10^6/uL (4.30-6.10)
[2024-04-03 14:53] LABS: ALBUMIN 3.2 G/DL (3.2-5.2); ALKALINE PHOSPHATASE 89 U/L (46-116); ALT/SGPT 34 U/L (7.0-40); AST/SGOT 19 U/L (<34); BILIRUBIN,TOTAL 0.3 MG/DL (0.3-1.2); BLOOD UREA NITROGEN 22 MG/DL (9-23); CALCIUM LEVEL 9.2 MG/DL (8.3-10.6); CARBON DIOXIDE LEVEL 30 MMOL/L (20-31); CHLORIDE LEVEL 97 MMOL/L (98-107); CREATININE FOR GFR 0.78 MG/DL (0.70-1.30); GLOMERULAR FILTRATION RATE > 60.0 (>42); GLUCOSE, FASTING 123 MG/DL (74-106); POTASSIUM SERUM 4.9 MMOL/L (3.5-5.1); SODIUM LEVEL 131 MMOL/L (136-145); TOTAL PROTEIN 6.7 G/DL (5.7-8.2)
[2024-04-03 15:54] LABS: INR 1.46; PARTIAL THROMBOPLASTIN TIME 30.2 SECONDS (24.8-34.2); PROTHROMBIN TIME 17.3 SECONDS (12.5-14.5)
[2024-05-01 14:49] LABS: BASO % 0.2 % (0.0-1.0); EOS # 0.1 10^3/uL (0.0-0.5); EOS % 0.6 % (0.0-3.0); HEMATOCRIT 32.9 % (42.0-52.0); HEMOGLOBIN 10.8 g/dl (13.5-17.5); LYMPH # 1.1 10^3/uL (1.5-5.0); LYMPH % 8.9 % (24.0-44.0); MEAN CORPUSCULAR HEMOGLOBIN 28.4 pg (27.0-33.0); MEAN CORPUSCULAR HGB CONC 32.8 g/dl (32.0-36.5); MEAN CORPUSCULAR VOLUME 86.6 fl (80.0-96.0); MONO # 1.5 10^3/uL (0.0-0.8); MONO % 11.9 % (2.0-8.0); NEUTROPHILS # 9.5 10^3/uL (1.5-8.5); NEUTROPHILS % 77.9 % (36.0-66.0); PLATELET COUNT, AUTOMATED 408 10^3/uL (150-450); WHITE BLOOD COUNT 12.2 10^3/uL (4.0-10.0)
[2024-05-01 15:23] LABS: ALBUMIN 3.3 G/DL (3.2-5.2); ALKALINE PHOSPHATASE 75 U/L (46-116); ALT/SGPT 21 U/L (7.0-40); AST/SGOT 13 U/L (<34); BILIRUBIN,TOTAL 0.4 MG/DL (0.3-1.2); BLOOD UREA NITROGEN 20 MG/DL (9-23); CALCIUM LEVEL 9.2 MG/DL (8.3-10.6); CARBON DIOXIDE LEVEL 30 MMOL/L (20-31); CHLORIDE LEVEL 98 MMOL/L (98-107); CREATININE FOR GFR 0.71 MG/DL (0.70-1.30); GLOMERULAR FILTRATION RATE > 60.0 (>42); GLUCOSE, FASTING 116 MG/DL (74-106); SODIUM LEVEL 133 MMOL/L (136-145); TOTAL PROTEIN 6.8 G/DL (5.7-8.2)
[2024-05-03 11:23] VITALS: BP 107/77; TEMP 95.8; O2SAT 95
[2024-05-03] MEDS: NS (Normal Saline) 0.9% 1,000 ML IV SCH ×2 (12:34→15:04)
[2024-05-03] MEDS: PALONOSETRON 0.25MG/5ML VIAL (ALOXI) IV SCH (12:46)
[2024-05-03] MEDS: FOSAPREPITANT 150 MG, VIAL 2 BAG 13MM ADAPTER 1 EACH in NS 250 ML IV SCH (12:46)
[2024-05-03] MEDS: NS B BRAUN IV SCH (13:49)
[2024-05-03] MEDS: CISPLATIN IV SCH (13:49)
[2024-05-03] MEDS: SODIUM CHLORIDE 0.9% INJ 10 ML SYR IV PRN (16:13)
[2024-05-08 14:45] LABS: BASO % 0.2 % (0.0-1.0); EOS # 0.1 10^3/uL (0.0-0.5); EOS % 0.9 % (0.0-3.0); HEMATOCRIT 33.2 % (42.0-52.0); LYMPH % 8.4 % (24.0-44.0); MEAN CORPUSCULAR HEMOGLOBIN 28.1 pg (27.0-33.0); MEAN CORPUSCULAR HGB CONC 33.1 g/dl (32.0-36.5); MEAN CORPUSCULAR VOLUME 84.9 fl (80.0-96.0); MONO # 1.2 10^3/uL (0.0-0.8); MONO % 9.4 % (2.0-8.0); NEUTROPHILS # 9.9 10^3/uL (1.5-8.5); NEUTROPHILS % 79.1 % (36.0-66.0); PLATELET COUNT, AUTOMATED 528 10^3/uL (150-450); RED BLOOD COUNT 3.91 10^6/uL (4.30-6.10); WHITE BLOOD COUNT 12.5 10^3/uL (4.0-10.0)
[2024-05-08 15:15] LABS: ALBUMIN 3.4 G/DL (3.2-5.2); ALKALINE PHOSPHATASE 67 U/L (46-116); ALT/SGPT 19 U/L (7.0-40); AST/SGOT 13 U/L (<34); BILIRUBIN,TOTAL 0.3 MG/DL (0.3-1.2); BLOOD UREA NITROGEN 27 MG/DL (9-23); CALCIUM LEVEL 9.6 MG/DL (8.3-10.6); CARBON DIOXIDE LEVEL 28 MMOL/L (20-31); CHLORIDE LEVEL 97 MMOL/L (98-107); CREATININE FOR GFR 1.12 MG/DL (0.70-1.30); GLOMERULAR FILTRATION RATE > 60.0 (>42); GLUCOSE, FASTING 100 MG/DL (74-106); POTASSIUM SERUM 5.5 MMOL/L (3.5-5.1); SODIUM LEVEL 129 MMOL/L (136-145); TOTAL PROTEIN 7.3 G/DL (5.7-8.2)
[2024-05-10 10:42] VITALS: BP 96/68; O2SAT 96
[2024-05-10] MEDS: NS (Normal Saline) 0.9% 1,000 ML IV SCH ×2 (12:04→14:17)
[2024-05-10] MEDS: FOSAPREPITANT 150 MG, VIAL 2 BAG 13MM ADAPTER 1 EACH in NS 250 ML IV SCH (12:05)
[2024-05-10] MEDS: PALONOSETRON 0.25MG/5ML VIAL (ALOXI) IV SCH (12:07)
[2024-05-10] MEDS: NS B BRAUN IV SCH (13:10)
[2024-05-10] MEDS: CISPLATIN IV SCH (13:10)
[2024-05-10] MEDS: SODIUM CHLORIDE 0.9% INJ 10 ML SYR IV PRN (15:26)
[2024-05-15 12:16] LABS: BASO % 0.2 % (0.0-1.0); EOS % 0.5 % (0.0-3.0); HEMATOCRIT 32.8 % (42.0-52.0); HEMOGLOBIN 10.9 g/dl (13.5-17.5); LYMPH # 0.8 10^3/uL (1.5-5.0); MEAN CORPUSCULAR HEMOGLOBIN 28.4 pg (27.0-33.0); MEAN CORPUSCULAR HGB CONC 33.2 g/dl (32.0-36.5); MEAN CORPUSCULAR VOLUME 85.4 fl (80.0-96.0); MONO # 0.9 10^3/uL (0.0-0.8); MONO % 10.5 % (2.0-8.0); NEUTROPHILS # 6.4 10^3/uL (1.5-8.5); NEUTROPHILS % 78.2 % (36.0-66.0); PLATELET COUNT, AUTOMATED 409 10^3/uL (150-450); RED BLOOD COUNT 3.84 10^6/uL (4.30-6.10); WHITE BLOOD COUNT 8.2 10^3/uL (4.0-10.0)
[2024-05-15 12:49] LABS: ALBUMIN 3.4 G/DL (3.2-5.2); ALKALINE PHOSPHATASE 72 U/L (46-116); ALT/SGPT 18 U/L (7.0-40); AST/SGOT 15 U/L (<34); BILIRUBIN,TOTAL 0.3 MG/DL (0.3-1.2); BLOOD UREA NITROGEN 34 MG/DL (9-23); CALCIUM LEVEL 9.6 MG/DL (8.3-10.6); CARBON DIOXIDE LEVEL 28 MMOL/L (20-31); CHLORIDE LEVEL 99 MMOL/L (98-107); CREATININE FOR GFR 1.03 MG/DL (0.70-1.30); GLOMERULAR FILTRATION RATE > 60.0 (>42); GLUCOSE, FASTING 82 MG/DL (74-106); POTASSIUM SERUM 5.6 MMOL/L (3.5-5.1); SODIUM LEVEL 133 MMOL/L (136-145); TOTAL PROTEIN 7.5 G/DL (5.7-8.2)
[2024-05-17] MEDS: NS IV SCH (07:00)
[2024-05-17] MEDS: FOSAPREPITANT IV SCH (07:00)
[2024-05-17] MEDS: PALONOSETRON 0.25MG/5ML VIAL (ALOXI) IV SCH (07:00)
[2024-05-17] MEDS: NS (Normal Saline) 0.9% 1,000 ML IV SCH (07:00)
[2024-05-18 09:09] VITALS: BP 111/71; O2SAT 97
[2024-05-18] MEDS: NS (Normal Saline) 0.9% 1,000 ML IV SCH (10:07)
[2024-05-18] MEDS: PALONOSETRON 0.25MG/5ML VIAL (ALOXI) IV SCH (10:10)
[2024-05-18] MEDS: NS IV SCH (10:11)
[2024-05-18] MEDS: FOSAPREPITANT IV SCH (10:11)
[2024-05-18] MEDS: CISPLATIN IV SCH (11:18)
[2024-05-18] MEDS: NS B BRAUN IV SCH (11:18)
[2024-05-18] MEDS: SODIUM CHLORIDE 0.9% INJ 10 ML SYR IV PRN (11:21)
[2024-05-22 14:30] LABS: BASO % 0.3 % (0.0-1.0); EOS % 0.5 % (0.0-3.0); HEMATOCRIT 32.1 % (42.0-52.0); HEMOGLOBIN 10.6 g/dl (13.5-17.5); LYMPH # 0.5 10^3/uL (1.5-5.0); LYMPH % 8.4 % (24.0-44.0); MEAN CORPUSCULAR VOLUME 84.9 fl (80.0-96.0); MONO # 0.6 10^3/uL (0.0-0.8); MONO % 9.1 % (2.0-8.0); NEUTROPHILS # 5.2 10^3/uL (1.5-8.5); NEUTROPHILS % 81.5 % (36.0-66.0); PLATELET COUNT, AUTOMATED 293 10^3/uL (150-450); RED BLOOD COUNT 3.78 10^6/uL (4.30-6.10); WHITE BLOOD COUNT 6.4 10^3/uL (4.0-10.0)
[2024-05-22 14:58] LABS: ALBUMIN 3.7 G/DL (3.2-5.2); ALKALINE PHOSPHATASE 77 U/L (46-116); ALT/SGPT 13 U/L (7.0-40); AST/SGOT 9 U/L (<34); BILIRUBIN,TOTAL 0.3 MG/DL (0.3-1.2); BLOOD UREA NITROGEN 32 MG/DL (9-23); CALCIUM LEVEL 9.7 MG/DL (8.3-10.6); CARBON DIOXIDE LEVEL 30 MMOL/L (20-31); CHLORIDE LEVEL 100 MMOL/L (98-107); CREATININE FOR GFR 0.96 MG/DL (0.70-1.30); GLOMERULAR FILTRATION RATE > 60.0 (>42); GLUCOSE, FASTING 105 MG/DL (74-106); POTASSIUM SERUM 5.1 MMOL/L (3.5-5.1); SODIUM LEVEL 134 MMOL/L (136-145); TOTAL PROTEIN 7.7 G/DL (5.7-8.2)
[2024-05-24 08:52] VITALS: BP 107/67; O2SAT 97
[2024-05-24] MEDS: NS (Normal Saline) 0.9% 1,000 ML IV SCH ×2 (09:58→13:28)
[2024-05-24] MEDS: MAG SULF 1GM/100ML (MAG RUN) 100 ML IV SCH (09:58)
[2024-05-24] MEDS: PALONOSETRON 0.25MG/5ML VIAL (ALOXI) IV SCH (11:03)
[2024-05-24] MEDS: FOSAPREPITANT IV SCH (11:03)
[2024-05-24] MEDS: NS IV SCH (11:03)
[2024-05-24] MEDS: CISPLATIN IV SCH (11:58)
[2024-05-24] MEDS: NS B BRAUN IV SCH (11:58)
[2024-05-24] MEDS: SODIUM CHLORIDE 0.9% INJ 10 ML SYR IV PRN (14:31)
[2024-05-29 10:01] LABS: BASO % 0.2 % (0.0-1.0); EOS % 0.7 % (0.0-3.0); HEMATOCRIT 29.4 % (42.0-52.0); HEMOGLOBIN 9.6 g/dl (13.5-17.5); LYMPH # 0.4 10^3/uL (1.5-5.0); LYMPH % 9.4 % (24.0-44.0); MEAN CORPUSCULAR HEMOGLOBIN 27.7 pg (27.0-33.0); MEAN CORPUSCULAR HGB CONC 32.7 g/dl (32.0-36.5); MONO # 0.4 10^3/uL (0.0-0.8); MONO % 9.9 % (2.0-8.0); NEUTROPHILS # 3.3 10^3/uL (1.5-8.5); NEUTROPHILS % 79.6 % (36.0-66.0); PLATELET COUNT, AUTOMATED 163 10^3/uL (150-450); RED BLOOD COUNT 3.46 10^6/uL (4.30-6.10); WHITE BLOOD COUNT 4.1 10^3/uL (4.0-10.0)
[2024-05-29 10:48] LABS: ALBUMIN 3.4 G/DL (3.2-5.2); ALKALINE PHOSPHATASE 72 U/L (46-116); ALT/SGPT 10 U/L (7.0-40); AST/SGOT 8 U/L (<34); BILIRUBIN,TOTAL 0.3 MG/DL (0.3-1.2); BLOOD UREA NITROGEN 26 MG/DL (9-23); CALCIUM LEVEL 9.7 MG/DL (8.3-10.6); CARBON DIOXIDE LEVEL 28 MMOL/L (20-31); CHLORIDE LEVEL 103 MMOL/L (98-107); CREATININE FOR GFR 0.93 MG/DL (0.70-1.30); GLOMERULAR FILTRATION RATE > 60.0 (>42); GLUCOSE, FASTING 117 MG/DL (74-106); POTASSIUM SERUM 4.8 MMOL/L (3.5-5.1); SODIUM LEVEL 135 MMOL/L (136-145); TOTAL PROTEIN 6.9 G/DL (5.7-8.2)
[2024-05-31 08:30] VITALS: BP_DIAS 74; O2SAT 96
[2024-05-31] MEDS: NS (Normal Saline) 0.9% 1,000 ML IV SCH (09:51)
[2024-05-31] MEDS: FOSAPREPITANT 150 MG, VIAL 2 BAG 13MM ADAPTER 1 EACH in NS 250 ML IV SCH (09:51)
[2024-05-31] MEDS: MAG SULF 1GM/100ML (MAG RUN) 100 ML IV SCH (09:52)
[2024-05-31] MEDS: PALONOSETRON 0.25MG/5ML VIAL (ALOXI) IV SCH (09:52)
[2024-05-31] MEDS: CISPLATIN IV SCH (11:16)
[2024-05-31] MEDS: NS B BRAUN IV SCH (11:16)
[2024-05-31] MEDS: SODIUM CHLORIDE 0.9% INJ 10 ML SYR IV PRN (13:26)
[2024-06-05 12:16] LABS: BASO % 0.6 % (0.0-1.0); EOS % 0.6 % (0.0-3.0); HEMATOCRIT 26.7 % (42.0-52.0); HEMOGLOBIN 8.9 g/dl (13.5-17.5); LYMPH # 0.4 10^3/uL (1.5-5.0); MEAN CORPUSCULAR HEMOGLOBIN 28.4 pg (27.0-33.0); MEAN CORPUSCULAR HGB CONC 33.3 g/dl (32.0-36.5); MEAN CORPUSCULAR VOLUME 85.3 fl (80.0-96.0); MONO # 0.4 10^3/uL (0.0-0.8); MONO % 12.1 % (2.0-8.0); NEUTROPHILS # 2.7 10^3/uL (1.5-8.5); NEUTROPHILS % 75.4 % (36.0-66.0); PLATELET COUNT, AUTOMATED 126 10^3/uL (150-450); RED BLOOD COUNT 3.13 10^6/uL (4.30-6.10); WHITE BLOOD COUNT 3.5 10^3/uL (4.0-10.0)
[2024-06-05 12:43] LABS: ALBUMIN 3.6 G/DL (3.2-5.2); ALKALINE PHOSPHATASE 64 U/L (40-129); ALT/SGPT < 9 U/L (7.0-40); AST/SGOT 9 U/L (<34); BILIRUBIN,TOTAL 0.2 MG/DL (0.3-1.2); BLOOD UREA NITROGEN 25 MG/DL (9-23); CARBON DIOXIDE LEVEL 28 MMOL/L (20-31); CHLORIDE LEVEL 102 MMOL/L (98-107); CREATININE FOR GFR 0.88 MG/DL (0.70-1.30); GLOMERULAR FILTRATION RATE > 60.0 (>42); GLUCOSE, FASTING 104 MG/DL (74-106); POTASSIUM SERUM 5.2 MMOL/L (3.5-5.1); SODIUM LEVEL 133 MMOL/L (136-145)
[2024-06-07 08:07] VITALS: BP 111/64; O2SAT 97
[2024-06-07] MEDS: MAG SULF 1GM/100ML (MAG RUN) 100 ML IV SCH (09:01)
[2024-06-07] MEDS: NS (Normal Saline) 0.9% 1,000 ML IV SCH (09:25)
[2024-06-07] MEDS: FOSAPREPITANT 150 MG, VIAL 2 BAG 13MM ADAPTER 1 EACH in NS 250 ML IV SCH (10:55)
[2024-06-07] MEDS: PALONOSETRON 0.25MG/5ML VIAL (ALOXI) IV SCH (10:55)
[2024-06-07] MEDS: NS B BRAUN IV SCH (11:27)
[2024-06-07] MEDS: CISPLATIN IV SCH (11:27)
[~2024-08-04] VITALS: Ht 182.9 cm; Wt 106.5 kg
[~2024-08-04 09:38] MED LIST changes: +FOSAPREPITANT 150 MG in NS 245 ML IV SCH; +FOSAPREPITANT 150 MG, VIAL 2 BAG 13MM ADAPTER 1 EACH in NS 250 ML IV SCH; +NS (Normal Saline) 0.9% 1,000 ML IV SCH; +PALONOSETRON 0.25MG/5ML VIAL (ALOXI) IV SCH; +SODIUM CHLORIDE 0.9% INJ 10 ML SYR IV PRN
[2024-08-04 09:46] VITALS: BP 120/68; O2SAT 94
[2024-08-10] MEDS ORDERED: ZINC220C4 PO (16:58)
[2024-08-10] MEDS ORDERED: IVER1TAB PO (17:09)
[2024-08-10] MEDS ORDERED: CURC500C2 PO (17:14)
[2024-08-10] MEDS ORDERED: MED REC COMMENT (17:16)
[2024-08-11] MEDS ORDERED: IVERMECTIN PO (14:34)
[2024-08-15] MEDS ORDERED: SODIUM CHLORIDE 0.9% INJ 10 ML SYR IV PRN (08:00)
[2024-08-15] MEDS ORDERED: RISATAB3 PO (08:07)
[2024-08-15] MEDS ORDERED: Ketorolac Tromethamine IV (08:07)
[2024-08-15] MEDS ORDERED: VITAD1000T PO (08:07)
[2024-08-15] MEDS ORDERED: ACET65SU PR (08:07)
[2024-08-15] MEDS ORDERED: Multivitamins PO (08:07)
[2024-08-15] MEDS ORDERED: MERO1VIA3 IV (08:07)
[2024-08-15] MEDS ORDERED: ZINC220CA PO (08:08)
[2024-08-15] MEDS ORDERED: QUET1TAB17 PO (08:08)
[2024-08-15] MEDS ORDERED: VANC1PIG IV (08:08)
== END 2024-09-02 | disposition expired ==
LOC: M ONCM 09-02
PROVIDERS: ATTEND Specialist
DX: C06.9 Malignant neoplasm of mouth, unspecified (principal); Z93.1 Gastrostomy status; I48.91 Unspecified atrial fibrillation; I10 Essential (primary) hypertension; L08.89 Other specified local infections of the skin and subcutaneous tissue; E83.42 Hypomagnesemia; Z79.899 Other long term (current) drug therapy; Z87.891 Personal history of nicotine dependence; Z87.890 Personal history of sex reassignment; Z88.0 Allergy status to penicillin; Z88.1 Allergy status to other antibiotic agents; Z79.01 Long term (current) use of anticoagulants
CPT/HCPCS: 31575; 36415; 70491; 71045; 71260; 80053; 83735; 85025; 85610; 85730; 96361; 96366; 96367; 96368; 96375; 96413; 96415; G0463; J1100; J1453; J1642; J2469; J3475; J9060; Q9967

== ENCOUNTER → 2024-08-04 | Outpatient (CLI) | payer MEDICARE, BC ==
[~2024-08-04] MED LIST changes: +LEVO1TAB40 PO; +META28.32 PO; +MIRA3350 PO
== END ==
LOC: M ONCR 09:41
PROVIDERS: ATTEND General Practice
DX: R06.02 Shortness of breath (principal); R07.9 Chest pain, unspecified; R91.8 Other nonspecific abnormal finding of lung field

== ENCOUNTER 2024-08-10 12:00 | Inpatient (IN) | payer MEDICARE, BC ==
[~2024-08-10] VITALS: Ht 182.9 cm; Wt 98.9 kg
[~2024-08-10 12:00] MED LIST changes: -FOSAPREPITANT 150 MG in NS 245 ML IV SCH; -FOSAPREPITANT 150 MG, VIAL 2 BAG 13MM ADAPTER 1 EACH in NS 250 ML IV SCH; -NS (Normal Saline) 0.9% 1,000 ML IV SCH; -PALONOSETRON 0.25MG/5ML VIAL (ALOXI) IV SCH; -SODIUM CHLORIDE 0.9% INJ 10 ML SYR IV PRN
[2024-08-10 13:11] LABS: BASO % 0.1 % (0.0-1.0); EOS % 0.1 % (0.0-3.0); HEMOGLOBIN 9.5 g/dl (13.5-17.5); LYMPH # 0.5 10^3/uL (1.5-5.0); LYMPH % 3.3 % (24.0-44.0); MEAN CORPUSCULAR HEMOGLOBIN 30.6 pg (27.0-33.0); MEAN CORPUSCULAR HGB CONC 32.8 g/dl (32.0-36.5); MEAN CORPUSCULAR VOLUME 93.5 fl (80.0-96.0); MONO # 1.5 10^3/uL (0.0-0.8); MONO % 10.8 % (2.0-8.0); NEUTROPHILS # 11.5 10^3/uL (1.5-8.5); NEUTROPHILS % 84.5 % (36.0-66.0); PLATELET COUNT, AUTOMATED 298 10^3/uL (150-450); WHITE BLOOD COUNT 13.6 10^3/uL (4.0-10.0)
[2024-08-10 13:31] LABS: CK-MB VALUE MASS < 1.0 NG/ML (<3.6)
[2024-08-10 13:33] LABS: CPK CREATINE PHOSPHOKINASE 26 U/L (46-171); MB/CK RELATIVE INDEX 3.84 (< OR =4)
[2024-08-10 13:34] LABS: OSMOLALITY SERUM 284 MOSM/KG (280-301)
[2024-08-10 13:35] LABS: THYROID STIMULATING HORMONE 1.074 uIU/ML (0.55-4.78)
[2024-08-10 13:39] LABS: ALBUMIN 2.6 G/DL (3.2-5.2); ALKALINE PHOSPHATASE 115 U/L (40-129); ALT/SGPT 112 U/L (7.0-40); AST/SGOT 60 U/L (<34); BILIRUBIN,DIRECT 0.3 MG/DL (<0.4); BILIRUBIN,TOTAL 0.7 MG/DL (0.3-1.2); BLOOD UREA NITROGEN 21 MG/DL (9-23); CALCIUM LEVEL 9.8 MG/DL (8.3-10.6); CARBON DIOXIDE LEVEL 26 MMOL/L (20-31); CHLORIDE LEVEL 100 MMOL/L (98-107); CREATININE FOR GFR 0.85 MG/DL (0.70-1.30); GLOMERULAR FILTRATION RATE > 60.0 (>42); GLUCOSE, FASTING 114 MG/DL (74-106); POTASSIUM SERUM 4.7 MMOL/L (3.5-5.1); SODIUM LEVEL 135 MMOL/L (136-145); TOTAL PROTEIN 6.4 G/DL (5.7-8.2)
[2024-08-10 14:47] LABS: CK-MB VALUE MASS < 1.0 NG/ML (<3.6)
[2024-08-10 14:49] LABS: CPK CREATINE PHOSPHOKINASE 19 U/L (46-171); MB/CK RELATIVE INDEX 5.26 (< OR =4)
[2024-08-10 15:02] LABS: KETONE, URINE AUTO RFX NEGATIVE (NEGATIVE); LEUKOCYTE ESTERASE UR AUTO RFX NEGATIVE (NEGATIVE); MUCUS, URINE RFX SMALL (NEGATIVE); NITRITE, URINE AUTO RFX NEGATIVE (NEGATIVE); RBC, URINE AUTO RFX 1 /HPF (0-3); SQUAM EPITHELIAL CELL UR AURFX 0 /HPF (0-6); WBC, URINE AUTO RFX 0 /HPF (0-3)
[2024-08-10] MEDS ORDERED: ZINC220C4 PO (16:58)
[2024-08-10] MEDS ORDERED: IVER1TAB PO (17:09)
[2024-08-10] MEDS ORDERED: HOME MED LIST COMPLETE! XX SCH (17:10)
[2024-08-10] MEDS ORDERED: CURC500C2 PO (17:14)
[2024-08-10] MEDS ORDERED: MED REC COMMENT (17:16)
[2024-08-10 17:47] VITALS: BP 132/77; TEMP 97.3; O2SAT 97
[2024-08-10] MEDS: NS (Normal Saline) 0.9% 1,000 ML IV ONE (17:55)
[2024-08-10 18:40] VITALS: O2SAT 98
[2024-08-10 18:55] VITALS: O2SAT 98
[2024-08-10] MEDS: ACETAMINOPHEN *IV* 1,000 MG in IV 1 EA IV SCH (19:50)
[2024-08-10] MEDS: PIPERACILLIN/TAZOBACTAM SOD 3.375 GM in DEXTROSE 5% (D5W) ADV/MINI-BAG 50 ML IV SCH (19:51)
[2024-08-10 20:00] VITALS: BP 132/77; TEMP 97.3; O2SAT 94
[2024-08-11 04:00] VITALS: BP 147/68; TEMP 98.4; O2SAT 92
[2024-08-11 05:40] VITALS: TEMP 101.5
[2024-08-11] MEDS: KETOROLAC 30 MG/ML 1ML VIAL IV ONE (06:03)
[2024-08-11 06:13] LABS: BASO % 0.1 % (0.0-1.0); EOS % 0.1 % (0.0-3.0); HEMATOCRIT 28.5 % (42.0-52.0); HEMOGLOBIN 9.1 g/dl (13.5-17.5); LYMPH # 0.4 10^3/uL (1.5-5.0); LYMPH % 3.2 % (24.0-44.0); MEAN CORPUSCULAR HEMOGLOBIN 29.4 pg (27.0-33.0); MEAN CORPUSCULAR HGB CONC 31.9 g/dl (32.0-36.5); MEAN CORPUSCULAR VOLUME 92.2 fl (80.0-96.0); MONO # 1.1 10^3/uL (0.0-0.8); MONO % 9.7 % (2.0-8.0); NEUTROPHILS # 10.1 10^3/uL (1.5-8.5); PLATELET COUNT, AUTOMATED 300 10^3/uL (150-450); RED BLOOD COUNT 3.09 10^6/uL (4.30-6.10); WHITE BLOOD COUNT 11.7 10^3/uL (4.0-10.0)
[2024-08-11 06:31] LABS: BLOOD UREA NITROGEN 19 MG/DL (9-23); CALCIUM LEVEL 9.8 MG/DL (8.3-10.6); CARBON DIOXIDE LEVEL 23 MMOL/L (20-31); CHLORIDE LEVEL 103 MMOL/L (98-107); CREATININE FOR GFR 0.75 MG/DL (0.70-1.30); GLOMERULAR FILTRATION RATE > 60.0 (>42); GLUCOSE, FASTING 113 MG/DL (74-106); POTASSIUM SERUM 4.5 MMOL/L (3.5-5.1); SODIUM LEVEL 136 MMOL/L (136-145)
[2024-08-11 12:00] VITALS: BP 90/50; TEMP 97.5; O2SAT 94
[2024-08-11] MEDS: NS (Normal Saline) 0.9% 1,000 ML IV ONE (12:59)
[2024-08-11] MEDS: ASCORBIC ACID 500 MG TAB PO SCH (14:09)
[2024-08-11] MEDS: APIXABAN 5 MG TAB (ELIQUIS) PO SCH (14:09)
[2024-08-11] MEDS: LACTOBACILLUS ACIDOPHILUS CAP (BACID) PO SCH (14:09)
[2024-08-11] MEDS: ATORVASTATIN 10 MG TAB PO SCH (14:10)
[2024-08-11] MEDS ORDERED: IVERMECTIN PO (14:34)
[2024-08-11 14:36] LABS: C REACTIVE PROTEIN QUANTITATIV 18.14 MG/DL (<1.0)
[2024-08-11 14:43] LABS: PROCALCITONIN 0.11 ng/ml
[2024-08-11] MEDS: ZINC SULFATE 220 MG CAP PO SCH (15:37)
[2024-08-11 18:12] VITALS: TEMP 99.9
[2024-08-11 18:39] VITALS: BP 116/58; TEMP 101.2; O2SAT 94
[2024-08-11] MEDS: ACETAMINOPHEN 325MG/10.15ML UDC GT PRN (18:48)
[2024-08-11 19:12] LABS: VENOUS BASE EXCESS 0.1 (-2.0-2.0); VENOUS HCO3 24.6 MMOL/L (23.0-27.0); VENOUS O2 SATURATION 81.9 % (60.0-80.0); VENOUS PARTIAL PRESSURE CO2 38.9 mmHg (38.0-50.0); VENOUS PARTIAL PRESSURE O2 47.7 mmHg (30.0-50.0); VENOUS PH 7.418 UNITS (7.330-7.430); VENOUS STANDARD HCO3 24.4 MMOL/L; VENOUS TOTAL CO2 25.7 MMOL/L (24.0-28.0)
[2024-08-11 19:20] LABS: BASO % 0.2 % (0.0-1.0); EOS % 0.2 % (0.0-3.0); HEMOGLOBIN 8.4 g/dl (13.5-17.5); LYMPH # 0.3 10^3/uL (1.5-5.0); LYMPH % 2.5 % (24.0-44.0); MEAN CORPUSCULAR HEMOGLOBIN 30.2 pg (27.0-33.0); MEAN CORPUSCULAR HGB CONC 32.3 g/dl (32.0-36.5); MEAN CORPUSCULAR VOLUME 93.5 fl (80.0-96.0); MONO % 8.7 % (2.0-8.0); NEUTROPHILS # 9.6 10^3/uL (1.5-8.5); NEUTROPHILS % 87.3 % (36.0-66.0); PLATELET COUNT, AUTOMATED 287 10^3/uL (150-450); RED BLOOD COUNT 2.78 10^6/uL (4.30-6.10)
[2024-08-11 19:41] LABS: C REACTIVE PROTEIN QUANTITATIV 17.32 MG/DL (<1.0)
[2024-08-11 19:48] LABS: PROCALCITONIN 0.11 ng/ml
[2024-08-11 19:50] LABS: ALBUMIN 2.2 G/DL (3.2-5.2); ALKALINE PHOSPHATASE 111 U/L (40-129); ALT/SGPT 106 U/L (7.0-40); AST/SGOT 73 U/L (<34); BILIRUBIN,TOTAL 0.4 MG/DL (0.3-1.2); BLOOD UREA NITROGEN 28 MG/DL (9-23); CARBON DIOXIDE LEVEL 25 MMOL/L (20-31); CHLORIDE LEVEL 104 MMOL/L (98-107); CREATININE FOR GFR 0.84 MG/DL (0.70-1.30); GLOMERULAR FILTRATION RATE > 60.0 (>42); GLUCOSE, FASTING 130 MG/DL (74-106); MAGNESIUM LEVEL 1.9 MG/DL (1.8-2.4); POTASSIUM SERUM 4.7 MMOL/L (3.5-5.1); SODIUM LEVEL 137 MMOL/L (136-145); TOTAL PROTEIN 5.6 G/DL (5.7-8.2)
[2024-08-11 21:00] VITALS: BP 100/71; TEMP 97.9; O2SAT 96
[2024-08-11] MEDS ORDERED: IVERMECTIN 3 MG TAB (STROMECTOL) PO SCH (21:00)
[2024-08-11] MEDS ORDERED: IVERMECTIN PO SCH (21:00)
[2024-08-12] MEDS ORDERED: RAMELTEON 8 MG TAB (ROZEREM) PO PRN (00:05)
[2024-08-12 01:17] LABS: KETONE, URINE AUTO RFX NEGATIVE (NEGATIVE); LEUKOCYTE ESTERASE UR AUTO RFX NEGATIVE (NEGATIVE); NITRITE, URINE AUTO RFX NEGATIVE (NEGATIVE); RBC, URINE AUTO RFX 5 /HPF (0-3); SQUAM EPITHELIAL CELL UR AURFX 0 /HPF (0-6); WBC, URINE AUTO RFX 2 /HPF (0-3)
[2024-08-12 03:33] VITALS: BP 122/95; TEMP 97.9; O2SAT 95
[2024-08-12 06:21] LABS: BASO % 0.2 % (0.0-1.0); EOS % 0.1 % (0.0-3.0); HEMATOCRIT 27.8 % (42.0-52.0); LYMPH # 0.4 10^3/uL (1.5-5.0); LYMPH % 3.1 % (24.0-44.0); MEAN CORPUSCULAR HEMOGLOBIN 29.7 pg (27.0-33.0); MEAN CORPUSCULAR HGB CONC 32.4 g/dl (32.0-36.5); MEAN CORPUSCULAR VOLUME 91.7 fl (80.0-96.0); MONO # 1.1 10^3/uL (0.0-0.8); MONO % 8.7 % (2.0-8.0); NEUTROPHILS # 10.5 10^3/uL (1.5-8.5); NEUTROPHILS % 86.9 % (36.0-66.0); PLATELET COUNT, AUTOMATED 326 10^3/uL (150-450); RED BLOOD COUNT 3.03 10^6/uL (4.30-6.10); WHITE BLOOD COUNT 12.1 10^3/uL (4.0-10.0)
[2024-08-12 06:45] LABS: BLOOD UREA NITROGEN 23 MG/DL (9-23); CALCIUM LEVEL 9.5 MG/DL (8.3-10.6); CARBON DIOXIDE LEVEL 26 MMOL/L (20-31); CHLORIDE LEVEL 103 MMOL/L (98-107); CREATININE FOR GFR 0.81 MG/DL (0.70-1.30); GLOMERULAR FILTRATION RATE > 60.0 (>42); GLUCOSE, FASTING 107 MG/DL (74-106); POTASSIUM SERUM 4.5 MMOL/L (3.5-5.1); SODIUM LEVEL 136 MMOL/L (136-145)
[2024-08-12 06:49] LABS: CORTISOL AM 20.8 UG/DL (4.3-22.4)
[2024-08-12] MEDS: ACETAMINOPHEN 325MG/10.15ML UDC GT SCH (08:36)
[2024-08-12] MEDS ORDERED: ISOVUE-370 76% 100ML VIAL As Ordered ONE (09:26)
[2024-08-12 12:00] VITALS: BP 93/59; TEMP 99.7; O2SAT 92
[2024-08-12 18:51] VITALS: BP 101/60
[2024-08-12] MEDS ORDERED: IBUPROFEN 600MG TAB PO PRN (19:40)
[2024-08-12] MEDS: QUEtiapine FUMARATE 25 MG TAB PO SCH (20:10)
[2024-08-12 20:45] VITALS: BP_SYST 92; BP_SYST 98; BP_DIAS 44; BP_DIAS 55; TEMP 98.1; TEMP 99; O2SAT 93
[2024-08-12 22:41] VITALS: BP 92/38; TEMP 99.7; O2SAT 92
[2024-08-12] MEDS: NS (Normal Saline) 0.9% 1,000 ML IV ONE (23:07)
[2024-08-13] VITALS (12 sets, daily range): BP systolic 102–149; BP diastolic 57–83; TEMP 97.3–102.2; O2SAT 92–98
[2024-08-13 00:39] LABS: ALBUMIN 2.3 G/DL (3.2-5.2); ALKALINE PHOSPHATASE 119 U/L (40-129); ALT/SGPT 123 U/L (7.0-40); AST/SGOT 89 U/L (<34); BILIRUBIN,TOTAL 0.3 MG/DL (0.3-1.2); BLOOD UREA NITROGEN 28 MG/DL (9-23); CALCIUM LEVEL 9.1 MG/DL (8.3-10.6); CARBON DIOXIDE LEVEL 28 MMOL/L (20-31); CHLORIDE LEVEL 105 MMOL/L (98-107); CREATININE FOR GFR 0.92 MG/DL (0.70-1.30); GLOMERULAR FILTRATION RATE > 60.0 (>42); GLUCOSE, FASTING 128 MG/DL (74-106); POTASSIUM SERUM 5.2 MMOL/L (3.5-5.1); SODIUM LEVEL 139 MMOL/L (136-145); TOTAL PROTEIN 5.8 G/DL (5.7-8.2)
[2024-08-13 00:42] LABS: BASO % 0.2 % (0.0-1.0); EOS % 0.2 % (0.0-3.0); HEMATOCRIT 26.8 % (42.0-52.0); HEMOGLOBIN 8.6 g/dl (13.5-17.5); LYMPH # 0.5 10^3/uL (1.5-5.0); LYMPH % 4.2 % (24.0-44.0); MEAN CORPUSCULAR HEMOGLOBIN 30.7 pg (27.0-33.0); MEAN CORPUSCULAR HGB CONC 32.1 g/dl (32.0-36.5); MEAN CORPUSCULAR VOLUME 95.7 fl (80.0-96.0); MONO # 1.3 10^3/uL (0.0-0.8); MONO % 10.7 % (2.0-8.0); NEUTROPHILS # 10.4 10^3/uL (1.5-8.5); NEUTROPHILS % 83.4 % (36.0-66.0); PLATELET COUNT, AUTOMATED 315 10^3/uL (150-450); WHITE BLOOD COUNT 12.5 10^3/uL (4.0-10.0)
[2024-08-13] MEDS: NS (Normal Saline) 0.9% 1,000 ML IV SCH (01:56)
[2024-08-13] MEDS ORDERED: FLUID PLACE HOLDER IV SCH (04:00)
[2024-08-13] MEDS ORDERED: VANCOMYCIN HCL IV SCH (04:00)
[2024-08-13] MEDS: ACETAMINOPHEN *IV* 1,000 MG in IV 1 EA IV ONE ×2 (04:16→15:54)
[2024-08-13] MEDS: VANCOMYCIN HCL 2,000 MG, VIAL MATE ADAPTER 1 EACH in NS 500 ML IV ONE (04:33)
[2024-08-13 05:36] LABS: BASO % 0.2 % (0.0-1.0); EOS % 0.1 % (0.0-3.0); HEMATOCRIT 24.2 % (42.0-52.0); HEMOGLOBIN 7.8 g/dl (13.5-17.5); LYMPH # 0.3 10^3/uL (1.5-5.0); LYMPH % 2.5 % (24.0-44.0); MEAN CORPUSCULAR HEMOGLOBIN 30.2 pg (27.0-33.0); MEAN CORPUSCULAR HGB CONC 32.2 g/dl (32.0-36.5); MEAN CORPUSCULAR VOLUME 93.8 fl (80.0-96.0); MONO # 1.3 10^3/uL (0.0-0.8); MONO % 10.4 % (2.0-8.0); NEUTROPHILS # 10.5 10^3/uL (1.5-8.5); PLATELET COUNT, AUTOMATED 285 10^3/uL (150-450); RED BLOOD COUNT 2.58 10^6/uL (4.30-6.10); WHITE BLOOD COUNT 12.3 10^3/uL (4.0-10.0)
[2024-08-13 06:10] LABS: BLOOD UREA NITROGEN 26 MG/DL (9-23); CALCIUM LEVEL 8.7 MG/DL (8.3-10.6); CARBON DIOXIDE LEVEL 25 MMOL/L (20-31); CHLORIDE LEVEL 105 MMOL/L (98-107); CREATININE FOR GFR 0.82 MG/DL (0.70-1.30); GLOMERULAR FILTRATION RATE > 60.0 (>42); GLUCOSE, FASTING 122 MG/DL (74-106); SODIUM LEVEL 137 MMOL/L (136-145)
[2024-08-13 06:47] LABS: ERYTHROCYTE SEDIMENTATION RATE 66 mm/hr (0-20)
[2024-08-13 06:48] LABS: C REACTIVE PROTEIN QUANTITATIV 13.15 MG/DL (<1.0)
[2024-08-13] MEDS: CEFEPIME HCL 2 GM in DEXTROSE 5% (D5W) ADV/MINI-BAG 50 ML IV SCH (07:51)
[2024-08-13] MEDS: MULTIVITAMINS/MINERALS THERAP 1 TAB PO SCH (08:58)
[2024-08-13] MEDS ORDERED: MEROPENEM IV SCH (12:00)
[2024-08-13 12:49] LABS: HEMATOCRIT 29.4 % (42.0-52.0); HEMOGLOBIN 9.4 g/dl (13.5-17.5)
[2024-08-13] MEDS: MEROPENEM INJ 1 GM in IV 1 EA IV SCH ×2 (13:09)
[2024-08-13] MEDS ORDERED: MEROPENEM INJ 2 GM in NS 100 ML IV SCH (14:00)
[2024-08-13] MEDS: VANCOMYCIN 1,250 MG/250 ML IV BAG IV SCH (15:58)
[2024-08-13] MEDS ORDERED: SODIUM CHLORIDE 0.9% INJ 10 ML SYR IV PRN (23:00)
[2024-08-13] MEDS: ACETAMINOPHEN 650MG SUPP PR PRN (23:30)
[2024-08-13] MEDS ORDERED: ALTEPLASE 2MG/2ML VIAL XX ONE (23:55)
[2024-08-14] MEDS: LR 1,000 ML IV SCH (00:57)
[2024-08-14] MEDS: QUEtiapine FUMARATE 25 MG TAB PO PRN (03:00)
[2024-08-14 04:05] VITALS: BP 119/72; TEMP 100.8; O2SAT 93
[2024-08-14 05:21] LABS: BASO % 0.2 % (0.0-1.0); EOS % 0.1 % (0.0-3.0); HEMATOCRIT 30.3 % (42.0-52.0); HEMOGLOBIN 9.7 g/dl (13.5-17.5); LYMPH # 0.4 10^3/uL (1.5-5.0); LYMPH % 2.7 % (24.0-44.0); MEAN CORPUSCULAR HEMOGLOBIN 30.1 pg (27.0-33.0); MEAN CORPUSCULAR VOLUME 94.1 fl (80.0-96.0); MONO # 1.4 10^3/uL (0.0-0.8); NEUTROPHILS # 13.1 10^3/uL (1.5-8.5); PLATELET COUNT, AUTOMATED 309 10^3/uL (150-450); RED BLOOD COUNT 3.22 10^6/uL (4.30-6.10)
[2024-08-14 05:50] LABS: BLOOD UREA NITROGEN 18 MG/DL (9-23); CALCIUM LEVEL 10.4 MG/DL (8.3-10.6); CARBON DIOXIDE LEVEL 24 MMOL/L (20-31); CHLORIDE LEVEL 105 MMOL/L (98-107); CREATININE FOR GFR 0.79 MG/DL (0.70-1.30); GLOMERULAR FILTRATION RATE > 60.0 (>42); GLUCOSE, FASTING 100 MG/DL (74-106); POTASSIUM SERUM 4.8 MMOL/L (3.5-5.1); SODIUM LEVEL 137 MMOL/L (136-145)
[2024-08-14] MEDS: SODIUM CHLORIDE 0.9% INJ 10 ML SYR IV SCH (09:00)
[2024-08-14] MEDS: ACETAMINOPHEN *IV* 1,000 MG in IV 1 EA IV ONE (10:40)
[2024-08-14] MEDS ORDERED: PROHANCE 279.3MG/ML 5ML VIAL As Ordered ONE (10:48)
[2024-08-14] MEDS ORDERED: PROHANCE 279.3MG/ML 15ML VIAL As Ordered ONE (10:48)
[2024-08-14 16:00] VITALS: BP 128/74; TEMP 102.8; O2SAT 92
[2024-08-14] MEDS: VANCOMYCIN HCL 1,000 MG, VIAL MATE ADAPTER 1 EACH in NS 250 ML IV SCH (16:09)
[2024-08-14 17:11] VITALS: TEMP 102.1
[2024-08-14] MEDS: KETOROLAC 30 MG/ML 1ML VIAL IV PRN (18:39)
[2024-08-14 18:42] VITALS: TEMP 102.2
[2024-08-14 20:00] VITALS: BP 112/68; TEMP 99.8; O2SAT 94
[2024-08-15] MEDS: ACETAMINOPHEN *IV* 1,000 MG in IV 1 EA IV PRN (04:00)
[2024-08-15 04:03] VITALS: BP 132/69; TEMP 102; O2SAT 94
[2024-08-15 05:54] LABS: BASO % 0.2 % (0.0-1.0); EOS % 0.1 % (0.0-3.0); HEMATOCRIT 26.9 % (42.0-52.0); HEMOGLOBIN 8.7 g/dl (13.5-17.5); LYMPH # 0.4 10^3/uL (1.5-5.0); LYMPH % 3.4 % (24.0-44.0); MEAN CORPUSCULAR HEMOGLOBIN 29.8 pg (27.0-33.0); MEAN CORPUSCULAR HGB CONC 32.3 g/dl (32.0-36.5); MEAN CORPUSCULAR VOLUME 92.1 fl (80.0-96.0); MONO # 1.4 10^3/uL (0.0-0.8); MONO % 10.8 % (2.0-8.0); NEUTROPHILS % 84.4 % (36.0-66.0); PLATELET COUNT, AUTOMATED 302 10^3/uL (150-450); RED BLOOD COUNT 2.92 10^6/uL (4.30-6.10); WHITE BLOOD COUNT 13.1 10^3/uL (4.0-10.0)
[2024-08-15] MEDS ORDERED: VITAD1000T PO (08:07)
[2024-08-15] MEDS ORDERED: Ketorolac Tromethamine IV (08:07)
[2024-08-15] MEDS ORDERED: ACET65SU PR (08:07)
[2024-08-15] MEDS ORDERED: Multivitamins PO (08:07)
[2024-08-15] MEDS ORDERED: MERO1VIA3 IV (08:07)
[2024-08-15] MEDS ORDERED: RISATAB3 PO (08:07)
[2024-08-15] MEDS ORDERED: ZINC220CA PO (08:08)
[2024-08-15] MEDS ORDERED: VANC1PIG IV (08:08)
[2024-08-15] MEDS ORDERED: QUET1TAB17 PO (08:08)
[2024-08-15] MEDS: VITAMIN D 1,000 INTERNATIONAL UNITS TABLET PO SCH (09:04)
[2024-08-15 10:00] VITALS: BP 123/65; TEMP 101.3; O2SAT 95
== END 2024-08-15 11:00 | disposition short-term general hospital (02) | DRG 871 ==
LOC: M ED 12:00 → M ED INP 16:23 → M MSPAV 17:42
PROVIDERS: ADMIT Internal Medicine Nephrology; ATTEND Internal Medicine
PROC: 30233N1 Transfusion of Nonautologous Red Blood Cells into Peripheral Vein, Percutaneous Approach (ICD-10-PCS; principal; 2024-08-13)
DX: A41.9 Sepsis, unspecified organism (principal); G93.41 Metabolic encephalopathy; J18.9 Pneumonia, unspecified organism; C78.00 Secondary malignant neoplasm of unspecified lung; C03.1 Malignant neoplasm of lower gum; S11.90XD Unspecified open wound of unspecified part of neck, subsequent encounter; R13.10 Dysphagia, unspecified; R33.9 Retention of urine, unspecified; E78.5 Hyperlipidemia, unspecified; E86.0 Dehydration; I10 Essential (primary) hypertension; K21.9 Gastro-esophageal reflux disease without esophagitis; G47.33 Obstructive sleep apnea (adult) (pediatric); I48.0 Paroxysmal atrial fibrillation; F41.9 Anxiety disorder, unspecified; D64.9 Anemia, unspecified; Z92.21 Personal history of antineoplastic chemotherapy; Z87.891 Personal history of nicotine dependence; Z92.3 Personal history of irradiation; Z79.899 Other long term (current) drug therapy; Z79.01 Long term (current) use of anticoagulants; Z88.0 Allergy status to penicillin